=== PATIENT | male | born 1995 | race Hispanic/Latino ===

== ENCOUNTER 2019-03-23 03:30 | Emergency (ER) | payer SELFPAY ==
--- NOTE | 2019-03-23 04:03 | EDPHYS ---
Physician Documentation [facility] Name: Diego Howe Age: 24 yrs Sex: Male : 1995 Arrival Date: 03/23/2019 Time: 03:33 Bed 7 Private MD: ED Physician Vin Vicente HPI: 03/23 03:59 This 24 yrs old Male presents to ER via Ambulatory with complaints of Ear Pain.tw4 03:59 The patient presents with tenderness. The complaints affect the left ear. Onset: The tw4 symptoms/episode began/occurred 1 month(s) ago. Onset: The symptoms/episode began/occurred and became worse 2 day(s) ago. Modifying factors: The symptoms are alleviated by nothing, the symptoms are aggravated by nothing. Associated signs and symptoms: The patient has no apparent associated signs or symptoms. Severity of symptoms: At their worst the symptoms were mild. The patient has not experienced similar symptoms in the past. Historical: - Allergies: 03:47 No Known Allergies; rr5 - PMHx: 03:47 C-diff; Irritable bowel syndrome; rr5 - PSHx: 03:47 None; rr5 - Immunization history:: Adult Immunizations up to date. - Social history:: Smoking status: Patient uses tobacco products, smokes one pack cigarettes per day. Patient uses alcohol, occasionally. Patient/guardian denies using street drugs. - Ebola Screening: : Patient negative for fever greater than or equal to 101.5 degrees Fahrenheit, and additional compatible Ebola Virus Disease symptoms Patient denies exposure to infectious person Patient denies travel to an Ebola-affected area in the 21 days before illness onset. ROS: 03:59 Constitutional: Negative for fever, chills, and weight loss, Eyes: Negative for injury, tw4 pain, redness, and discharge. 03:59 ENT: Positive for ear pain, hearing loss. Exam: 03:59 Constitutional: This is a well developed, well nourished patient who is awake, alert, tw4 and in no acute distress. Head/Face: Normocephalic, atraumatic. 03:59 ENT: TM's: rupture, on the left. Vital Signs: 03:45 BP 135 / 95; Pulse 95; Resp 17; Temp 97.7; Pulse Ox 100% ; Weight 127.01 kg; Height 5 rr5 ft. 8 in. (172.72 cm); Pain 6/10; 03:45 Body Mass Index 42.57 (127.01 kg, 172.72 cm) rr5 MDM: 03:43 Patient medically screened. tw4 03:59 Differential diagnosis: otitis media, otitis externa, ruptured TM, cerumen impaction, tw4 barotrauma . Data reviewed: vital signs, nurses notes. Counseling: I had a detailed discussion with the patient and/or guardian regarding: the historical points, exam findings, and any diagnostic results supporting the discharge/admit diagnosis. Special discussion: I discussed with the patient/guardian in detail that at this point there is no indication for admission to the hospital. It is understood, however, that if the symptoms persist or worsen the patient needs to return immediately for re-evaluation. Administered Medications: No medications were administered Disposition: 03/23/19 04:02 Discharged to Home. Impression: Central perforation of tympanic membrane, left ear. - Condition is Stable. - Discharge Instructions: Eardrum Rupture, Adult, Eardrum Perforation, [id number]. - Prescriptions for Ciprodex 0.3- 0.1 % Otic Drops, Suspension - instill 4 drop by OTIC route every 12 hours for 7 days , for ears ONLY; 1 Container. - Medication Reconciliation Form, Thank You Letter, Antibiotic Education, Prescription Opioid Use, Work release form form. - Follow up: Private Physician; When: Upon discharge from the Emergency Department; Reason: Wound Recheck, If symptoms return, Continuance of care. Follow up: Adriana Flores MD; When: Upon discharge from the Emergency Department; Reason: If symptoms return, Recheck today's complaints, Continuance of care. - Problem is new. - Symptoms have improved. Signatures: Vin Vicente MD MD tw4 Serjio Schwab RN RN rr5 Corrections: (The following items were deleted from the chart) 04:10 04:02 03/23/2019 04:02 Discharged to Home. Impression: Central perforation of tympanic rr5 membrane, left ear. Condition is Stable. Forms are Medication Reconciliation Form, Thank You Letter, Antibiotic Education, Prescription Opioid Use. Follow up: Private Physician; When: Upon discharge from the Emergency Department; Reason: Wound Recheck, If symptoms return, Continuance of care. Follow up: Adriana Flores; When: Upon discharge from the Emergency Department; Reason: If symptoms return, Recheck today's complaints, Continuance of care. Problem is new. Symptoms have improved. tw4
--- NOTE | 2019-03-23 04:03 | ER ---
Nurse's Notes [facility] Name: Diego Howe Age: 24 yrs Sex: Male : 1995 Arrival Date: 03/23/2019 Time: 03:33 Bed 7 Private MD: Diagnosis: Central perforation of tympanic membrane, left ear Presentation: 03/23 03:40 Presenting complaint: Patient states: started to have left ear pain 1 1/2 month ago. I rr5 thought its just earwax I cleaned it and put some drops. Last 2-3 weeks started to have some drain, this week up to yesterday the pain it gets worse and I feel it clogged up. Transition of care: patient was not received from another setting of care. Onset of symptoms was February 2019. Risk Assessment: Do you want to hurt yourself or someone else? Patient reports no desire to harm self or others. Initial Sepsis Screen: Does the patient meet any 2 criteria? No. Patient's initial sepsis screen is negative. Does the patient have a suspected source of infection? No. Patient's initial sepsis screen is negative. Care prior to arrival: Medication(s) given: ear drops. 03:40 Method Of Arrival: Ambulatory rr5 03:40 Acuity: MALENA 4 rr5 Historical: - Allergies: 03:47 No Known Allergies; rr5 - PMHx: 03:47 C-diff; Irritable bowel syndrome; rr5 - PSHx: 03:47 None; rr5 - Immunization history:: Adult Immunizations up to date. - Social history:: Smoking status: Patient uses tobacco products, smokes one pack cigarettes per day. Patient uses alcohol, occasionally. Patient/guardian denies using street drugs. - Ebola Screening: : Patient negative for fever greater than or equal to 101.5 degrees Fahrenheit, and additional compatible Ebola Virus Disease symptoms Patient denies exposure to infectious person Patient denies travel to an Ebola-affected area in the 21 days before illness onset. Screenin:47 Abuse screen: Denies threats or abuse. Denies injuries from another. Nutritional rr5 screening: No deficits noted. Tuberculosis screening: No symptoms or risk factors identified. Fall Risk None identified. Total Ferreira Fall Scale indicates No Risk (0-24 pts). Assessment: 03:47 General: Appears in no apparent distress. comfortable, Behavior is calm, cooperative, rr5 appropriate for age. Pain: Complains of pain in left ear Pain does not radiate. Pain currently is 6 out of 10 on a pain scale. Quality of pain is described as aching, Pain began gradually, Is intermittent. Neuro: Level of Consciousness is awake, alert, obeys commands, Oriented to person, place, time, situation, Appropriate for age. Cardiovascular: Capillary refill < 3 seconds Patient's skin is warm and dry. Respiratory: Airway is patent Respiratory effort is even, unlabored, Respiratory pattern is regular, symmetrical. GI: No signs and/or symptoms were reported involving the gastrointestinal system. : No signs and/or symptoms were reported regarding the genitourinary system. EENT: Ear canal w/ drainage noted from left ear ruptured ear drum. Reports pain in left ear Pain is 6 out of 10 on a pain scale. Derm: Skin is intact, Skin temperature is warm. Musculoskeletal: Circulation, motion, and sensation intact. Capillary refill < 3 seconds. 04:08 Reassessment: Patient appears in no apparent distress at this time. Patient is alert, rr5 oriented x 3, equal unlabored respirations, skin warm/dry/pink. discharge instruction given and explained without complaints made verbalized understanding. Vital Signs: 03:45 BP 135 / 95; Pulse 95; Resp 17; Temp 97.7; Pulse Ox 100% ; Weight 127.01 kg; Height 5 rr5 ft. 8 in. (172.72 cm); Pain 6/10; 03:45 Body Mass Index 42.57 (127.01 kg, 172.72 cm) rr5 ED Course: 03:33 Patient arrived in ED. ds1 03:40 Serjio Schwab, KEEGAN is Primary Nurse. rr5 03:43 Vin Vicente MD is Attending Physician. tw4 03:45 Triage completed. rr5 03:47 Arm band placed on left wrist. rr5 03:47 Patient has correct armband on for positive identification. rr5 03:47 No provider procedures requiring assistance completed. rr5 04:01 Adriana Flores MD is Referral Physician. tw4 04:09 Patient did not have IV access during this emergency room visit. rr5 Administered Medications: No medications were administered Outcome: 04:02 Discharge ordered by . tw4 04:09 Discharged to home ambulatory. rr5 04:09 Condition: stable 04:09 Discharge instructions given to patient, Instructed on discharge instructions, follow up and referral plans. medication usage, Demonstrated understanding of instructions, Prescriptions given X 1. 04:10 Patient left the ED. rr5 Signatures: Yanna Cortés ds1 Vin Vicente MD MD tw4 Serjio Schwab RN RN rr5
[2019-03-23 04:17] VITALS: BP 135/95; TEMP 97.7; O2SAT 100
== END 2019-03-23 04:10 | disposition home or self-care (01) ==
LOC: ER 03:30
DX: H72.02 Central perforation of tympanic membrane, left ear (principal); F17.210 Nicotine dependence, cigarettes, uncomplicated
CPT/HCPCS: 99282

== ENCOUNTER 2020-02-13 07:22 | Inpatient (IN) | payer SELFPAY ==
[2020-02-13] MEDS ORDERED: METHYLPREDNISOLONE 125 MG INJ ONE (08:14)
[2020-02-13 08:23] LABS: Absolute Lymphocytes (CBC) 1.4 K/uL (0.7-4.9); Basophils % 0.6 % (0-1.3); Hematocrit 52.9 % (39.6-49.0); Lymphocytes % 12.6 % (15.3-44.8); MPV 10.4 fL (7.6-11.3); RBC Red Blood Cell Count 5.92 M/uL (4.33-5.43)
[2020-02-13 08:24] LABS: Protime INR 0.97
[2020-02-13 08:37] LABS: ALT/SGPT 147 U/L (12-78); AST/SGOT 44 U/L (15-37); Albumin 4.1 g/dL (3.4-5.0); Alkaline Phosphatase 193 U/L (45-117); BUN Blood Urea Nitrogen 10 mg/dL (7-18); Bilirubin Direct 0.2 mg/dL (0-0.2); Bilirubin Total 0.6 mg/dL (0.2-1.0); CKMB Creatine Kinase MB 1.2 ng/mL (0.3-3.6); Creatine Phosphokinase 160 U/L (39-308); Glucose Level 433 mg/dL (74-106); Lipase 200 U/L (73-393); Magnesium 2.3 mg/dL (1.8-2.4); NT PRO-BNP 14 pg/mL (<125); Potassium 3.9 mmol/L (3.5-5.1); Protein, Total 8.7 g/dL (6.4-8.2); Sodium Level 128 mmol/L (136-145); Troponin (Emerg Dept Use Only) < 0.02 ng/mL (0.0-0.045)
[2020-02-13] MEDS ORDERED: NA CHLORIDE 0.9% 1,000 ML ONE ×2 (08:38→10:05)
[2020-02-13] MEDS ORDERED: ALBUTEROL 2.5 MG/3 ML NEB SOL ONE (08:38)
[2020-02-13 08:41] LABS: Bicarbonate 8 mmol/L (21-32)
--- NOTE | 2020-02-13 08:50 | ER ---
Nurse's Notes [facility] Name: Diego Howe Age: 24 yrs Sex: Male : 1995 Arrival Date: 02/13/2020 Time: 07:24 Bed 9 Private MD: Diagnosis: Type 1 diabetes mellitus with ketoacidosis Presentation: 02/12 07:48 Chief complaint: Patient states: PT c/o sob x3 days with productive cough, also c/o cp jr10 with deep breathing; pt noted to be tachypnic upon arrival. Coronavirus screen: Client denies travel out of the [place] in the last 14 days. cough unrelated to allergies, difficulty breathing, shortness of breath, Client presents with at least one sign or symptom that may indicate coronavirus-19. Standard/surgical mask placed on the client. Provider contacted for isolation considerations. The client denies any previous COVID testing. Ebola Screen: No symptoms or risks identified at this time. Initial Sepsis Screen: Does the patient meet any 2 criteria? RR > 20 per min. HR > 90 bpm. Yes Does the patient have a suspected source of infection? No. Patient's initial sepsis screen is negative. Risk Assessment: Do you want to hurt yourself or someone else? Patient reports no desire to harm self or others. Onset of symptoms was February 10, 2020. 07:48 Method Of Arrival: Wheelchair jr10 07:48 Acuity: MALENA 3 jr10 09:30 Acuity: MALENA 2 hb Historical: - Allergies: 07:57 No Known Allergies; jr10 - Home Meds: 07:57 None [Active]; jr10 - PMHx: 07:57 C-diff; Irritable bowel syndrome; Asthma; jr10 - Immunization history:: Adult Immunizations up to date. - Social history:: Smoking status: Patient reports the use of cigarette tobacco products, smokes one-half pack cigarettes per day, Patient/guardian denies using alcohol, street drugs, The patient lives with family. - Family history:: not pertinent. Screenin:01 Abuse screen: Denies threats or abuse. Denies injuries from another. Nutritional jr10 screening: No deficits noted. Tuberculosis screening: No symptoms or risk factors identified. Fall Risk No fall in past 12 months (0 pts). No secondary diagnosis (0 pts). IV access (20 points). Ambulatory Aid- None/Bed Rest/Nurse Assist (0 pts). Gait- Normal/Bed Rest/Wheelchair (0 pts) Mental Status- Oriented to own ability (0 pts). Assessment: 07:57 Reassessment: see triage note. General: Appears uncomfortable, Behavior is anxious. jr10 Pain: Denies pain. Neuro: No deficits noted. Cardiovascular: No deficits noted. Reports chest pain, with inspiration and cough Rhythm is regular. Respiratory: Reports shortness of breath at rest on exertion cough that is productive, pain with respiration Airway is patent Respiratory effort is even, unlabored, Respiratory pattern is symmetrical, tachypnea Breath sounds are clear bilaterally. the patient has moderate shortness of breath. GI: No deficits noted. : Reports urinary frequency. EENT: No deficits noted. Derm: No deficits noted. Musculoskeletal: No deficits noted. 15:38 Reassessment: Pt family contact information: Justyna (sister): [phone]. jr10 02/13 06:24 Reassessment: Phosporus of 0.3 naldo from laboratory called. ED provider aware. rr5 Vital Signs: 02/12 07:48 BP 159 / 108; Pulse 127; Resp 30; Temp 98.0; Pulse Ox 100% on R/A; Weight 99.79 kg (R); jr10 Height 6 ft. 3 in. (190.50 cm) (R); Pain 0/10; 10:30 BP 171 / 107; Pulse 126; Resp 36; Pulse Ox 100% on R/A; jr10 11:00 BP 158 / 94; Pulse 139; Resp 38; Pulse Ox 99% on R/A; jr10 12:00 BP 193 / 100; Pulse 133; Resp 36; Pulse Ox 98% on R/A; jr10 13:00 BP 150 / 98; Pulse 128; Resp 33; Pulse Ox 98% on R/A; jr10 14:00 BP 162 / 91; Pulse 123; Resp 30; Pulse Ox 98% on R/A; jr10 07:48 Body Mass Index 27.50 (99.79 kg, 190.50 cm) jr10 ED Course: 07:24 Patient arrived in ED. ds1 07:41 Carolyn Jackson MD is Attending Physician. ma2 07:47 Greene, Gabi, RN is Primary Nurse. jr10 07:48 No provider procedures requiring assistance completed. Inserted saline lock: 20 gauge jr10 in right antecubital area, using aseptic technique. IV is patent, is intact, with good blood return, Flushed. 07:56 Triage completed. jr10 07:57 Arm band placed on right wrist. jr10 08:01 Patient has correct armband on for positive identification. Bed in low position. Side jr10 rails up X 1. Side rails up X2. ekg monitor tech on. Pulse ox on. NIBP on. 08:15 EKG done, by ED staff, reviewed by Carolyn Jackson MD. dh3 08:29 XRAY CXR (1 view) In Process Unspecified. EDMS 08:50 Chucky Cabrera DO is Hospitalizing Provider. ma2 13:00 Patient admitted, IV remains in place. ED hold. jr10 19:39 Candido Sultana RN is Primary Nurse. rv 02/13 07:35 Wes Mckinney MD is Attending Physician. lexa Administered Medications: 02/12 08:35 Drug: SOLU-Medrol 125 mg Route: IVP; Site: right antecubital; jr10 09:23 Follow up: Response: No adverse reaction jr10 08:35 Drug: NS 0.9% 500 ml Route: IV; Rate: 1 bolus; Site: right antecubital; jr10 13:21 Follow up: Response: No adverse reaction; IV Status: Completed infusion jr10 08:41 Drug: Albuterol 2.5 mg Route: Inhalation; jr10 09:05 Drug: Albuterol 2.5 mg Route: Inhalation; jr10 13:22 Follow up: Response: No adverse reaction jr10 09:50 Drug: Insulin Drip - (Insulin Regular Human 100 units, NS 0.9% 100 ml) {Co-Signature: jr10 hb (Halley Brannon RN).} Route: IV; Rate: calculated rate; Site: right antecubital; 13:30 Follow up: Response: No adverse reaction; IV Status: Infusion continued upon admission jr10 09:53 Drug: NS 0.9% 200 ml Route: IV; Rate: 1000 ml; Site: left antecubital; jr10 15:00 Follow up: Response: No adverse reaction; IV Status: Completed infusion jr10 09:54 Not Given (d/c via verbal order from ): AZITHromycin 500 mg IVPB once over 1 hrs; jr10 (mix in 250 mL NS) Outcome: 08:50 Decision to Hospitalize by Provider. ma2 13:00 Admitted to ER Hold. Please see [facility] for further documentation. jr10 13:00 Condition: stable 13:00 Instructed on the need for admit, Demonstrated understanding of instructions. 08 02:59 Patient left the ED. sg Signatures: Dispatcher [employer] EDMS Bob Lyon, RN RN sg Wes Mckinney MD MD cha Sanford, Demi ds1 Halley Brannon, KEEGAN RN Malina Flores 3 Carolyn Jackson MD MD ma2 Candido Sultana, RN RN Serjio Schwab RN RN rr5 Gabi Greene RN RN jr10 Halley Brannon RN Corrections: (The following items were deleted from the chart) 02/12 09: 07:57 GI: No deficits noted. jr10 09: 07:57 : No deficits noted. jr10 jr10
--- NOTE | 2020-02-13 08:51 | EDPHYS ---
Physician Documentation [facility] Name: Diego Howe Age: 24 yrs Sex: Male : 1995 Arrival Date: 02/13/2020 Time: 07:24 Bed 9 Private MD: ED Physician Wes Mckinney HPI: 02/12 08:48 This 24 yrs old Male presents to ER via Wheelchair with complaints of ma2 Breathing Difficulty. 08:48 The patient has shortness of breath at rest. Onset: The symptoms/episode began/occurred ma2 gradually, 6 day(s) ago. Duration: The symptoms are continuous. Associated signs and symptoms: Pertinent negatives: diaphoresis, dizziness, fever, loss of consciousness. Severity of symptoms: At their worst the symptoms were moderate in the emergency department the symptoms are unchanged. The patient has not experienced similar symptoms in the past. Historical: - Allergies: 07:57 No Known Allergies; jr10 - Home Meds: 07:57 None [Active]; jr10 - PMHx: 07:57 C-diff; Irritable bowel syndrome; Asthma; jr10 - Immunization history:: Adult Immunizations up to date. - Social history:: Smoking status: Patient reports the use of cigarette tobacco products, smokes one-half pack cigarettes per day, Patient/guardian denies using alcohol, street drugs, The patient lives with family. - Family history:: not pertinent. ROS: 08:48 Constitutional: Negative for fever, chills, and weight loss. ma2 08:48 All other systems are negative. Exam: 08:48 Constitutional: This is a well developed, well nourished patient who is awake, alert, ma2 and in no acute distress. Head/Face: Normocephalic, atraumatic. ENT: Nares patent. No nasal discharge, no septal abnormalities noted. Tympanic membranes are normal and external auditory canals are clear. Oropharynx with no redness, swelling, or masses, exudates, or evidence of obstruction, uvula midline. Mucous membranes moist. Neck: Trachea midline, no thyromegaly or masses palpated, and no cervical lymphadenopathy. Supple, full range of motion without nuchal rigidity, or vertebral point tenderness. No Meningismus. Chest/axilla: Normal chest wall appearance and motion. Nontender with no deformity. No lesions are appreciated. Cardiovascular: Regular rate and rhythm with a normal S1 and S2. No gallops, murmurs, or rubs. Normal PMI, no JVD. No pulse deficits. Respiratory: breathing fast, otherwise Lungs have equal breath sounds bilaterally, clear to auscultation and percussion. No rales, rhonchi or wheezes noted. Abdomen/GI: Soft, non-tender, with normal bowel sounds. No distension or tympany. No guarding or rebound. No evidence of tenderness throughout. Vital Signs: 07:48 BP 159 / 108; Pulse 127; Resp 30; Temp 98.0; Pulse Ox 100% on R/A; Weight 99.79 kg (R); jr10 Height 6 ft. 3 in. (190.50 cm) (R); Pain 0/10; 10:30 BP 171 / 107; Pulse 126; Resp 36; Pulse Ox 100% on R/A; jr10 11:00 BP 158 / 94; Pulse 139; Resp 38; Pulse Ox 99% on R/A; jr10 12:00 BP 193 / 100; Pulse 133; Resp 36; Pulse Ox 98% on R/A; jr10 13:00 BP 150 / 98; Pulse 128; Resp 33; Pulse Ox 98% on R/A; jr10 14:00 BP 162 / 91; Pulse 123; Resp 30; Pulse Ox 98% on R/A; jr10 07:48 Body Mass Index 27.50 (99.79 kg, 190.50 cm) [facility] MDM: 07:41 Patient medically screened. ma2 08:48 Differential diagnosis: Anemia pneumonia, Pneumothorax reactive airway disease. Data wy2 reviewed: vital signs, nurses notes. Counseling: I had a detailed discussion with the patient and/or guardian regarding: the historical points, exam findings, and any diagnostic results supporting the discharge/admit diagnosis, the presence of at least one elevated blood pressure reading (>120/80) during this emergency department visit, the need for further work-up and treatment in the hospital. 02/12 07:55 Order name: BMP; Complete Time: 08:44 ma2 02/12 07:55 Order name: CBC with Diff; Complete Time: 08:44 ma2 02/12 07:55 Order name: Ckmb; Complete Time: 08:44 ma2 02/12 07:55 Order name: CPK; Complete Time: 08:44 ma2 02 07:55 Order name: Hepatic Function; Complete Time: 08:44 ma2 02/12 07:55 Order name: Lipase; Complete Time: 08:44 ma2 02 07:55 Order name: Magnesium; Complete Time: 08:44 ma2 02/12 07:55 Order name: NT PRO-BNP; Complete Time: 08:44 ma2 02/12 07:55 Order name: PT-INR; Complete Time: 08:44 ma2 02/12 07:55 Order name: Ptt, Activated; Complete Time: 08:44 ma2 02/12 07:55 Order name: Troponin (emerg Dept Use Only); Complete Time: 08:44 ma2 02/12 10:24 Order name: Urine Dipstick--Ancillary (enter results) eb 02/12 10:33 Order name: Urine Dipstick-Ancillary; Complete Time: 12:51 EDMS 02/12 10:57 Order name: Glucose, Ancillary Testing; Complete Time: 12:51 EDMS 02/12 11:10 Order name: ABG Arterial Blood Gas; Complete Time: 12:51 EDMS 02/12 11:56 Order name: Urine Drug Screen; Complete Time: 12:51 EDMS 02/12 12:32 Order name: Hemoglobin A1c; Complete Time: 12:51 EDMS 02 12:34 Order name: Glucose, Ancillary Testing; Complete Time: 12:51 EDMS 02/12 12:54 Order name: Basic Metabolic Panel; Complete Time: 12:51 EDMS 02/12 12:54 Order name: T4 Free; Complete Time: 12:52 EDMS 02/12 12:54 Order name: Thyroid Stimulating Hormone; Complete Time: 12:51 EDMS 02 13:46 Order name: Glucose, Ancillary Testing; Complete Time: 12:51 EDMS 02/12 14:51 Order name: Glucose, Ancillary Testing; Complete Time: 12:51 EDMS 02/12 15:22 Order name: Basic Metabolic Panel; Complete Time: 12:51 EDMS 02/12 15:43 Order name: ABG Arterial Blood Gas; Complete Time: 12:51 EDMS 02/12 15:51 Order name: Glucose, Ancillary Testing; Complete Time: 12:51 EDMS 02/12 16:51 Order name: Glucose, Ancillary Testing; Complete Time: 12:51 EDMS 02/12 17:36 Order name: Glucose, Ancillary Testing; Complete Time: 12:51 EDMS 02/12 18:34 Order name: Glucose, Ancillary Testing; Complete Time: 12:51 EDMS 02/12 18:35 Order name: CORONAVIRUS; Complete Time: 12:52 EDMS 02/12 19:39 Order name: Basic Metabolic Panel; Complete Time: 12:51 EDMS 02/12 19:40 Order name: Glucose, Ancillary Testing; Complete Time: 12:51 EDMS 02/12 20:56 Order name: Glucose, Ancillary Testing; Complete Time: 12:52 EDMS 02/12 21:41 Order name: Glucose, Ancillary Testing; Complete Time: 12:52 EDMS 02/12 23:44 Order name: Glucose, Ancillary Testing; Complete Time: 12:52 EDMS 02/12 23:46 Order name: Glucose, Ancillary Testing; Complete Time: 12:52 EDMS 02/13 00:44 Order name: Glucose, Ancillary Testing; Complete Time: 12:52 EDMS 02/13 01:55 Order name: Glucose, Ancillary Testing; Complete Time: 12:52 EDMS 02/13 02:10 Order name: Basic Metabolic Panel; Complete Time: 12:52 EDMS 02/13 02:54 Order name: Glucose, Ancillary Testing; Complete Time: 12:52 EDMS 02/13 03:54 Order name: Acetone Level; Complete Time: 12:52 EDMS 02/13 03:54 Order name: Glucose, Ancillary Testing; Complete Time: 12:52 EDMS 02/13 04:03 Order name: Lactate; Complete Time: 12:52 EDMS 02/13 04:40 Order name: Basic Metabolic Panel; Complete Time: 12:52 EDMS 02/13 04:40 Order name: Phosphorus; Complete Time: 12:52 EDMS 02/13 04:40 Order name: NT PRO-BNP; Complete Time: 12:52 EDMS 02/13 04:40 Order name: Magnesium; Complete Time: 12:52 EDMS 02/13 04:49 Order name: Glucose, Ancillary Testing; Complete Time: 12:52 EDMS 02/13 05:44 Order name: Acetone Level; Complete Time: 12:52 EDMS 02/13 05:49 Order name: CBC with Automated Diff; Complete Time: 12:52 EDMS 02/13 06:24 Order name: Phosphorus; Complete Time: 12:52 EDMS 02/13 06:24 Order name: Lipid Profile; Complete Time: 12:52 EDMS 02/13 06:24 Order name: Magnesium; Complete Time: 12:52 EDMS 02/13 06:35 Order name: LDL, Direct; Complete Time: 12:52 EDMS 02/13 06:38 Order name: Glucose, Ancillary Testing; Complete Time: 12:52 EDMS 02/13 07:44 Order name: Glucose, Ancillary Testing; Complete Time: 12:52 EDMS 02/13 08:50 Order name: Glucose, Ancillary Testing; Complete Time: 12:52 EDMS 02/13 09:50 Order name: Glucose, Ancillary Testing; Complete Time: 12:52 EDMS 02/13 09:52 Order name: Urine Culture EDMS 02/13 10:38 Order name: Basic Metabolic Panel; Complete Time: 12:52 EDMS 02/13 10:46 Order name: Glucose, Ancillary Testing; Complete Time: 12:52 EDMS 02/13 11:32 Order name: Blood Culture EDMS 02/12 07:55 Order name: XRAY CXR (1 view); Complete Time: 12:52 ma2 02/12 07:55 Order name: EKG; Complete Time: 07:56 ma2 02/12 07:55 Order name: Cardiac monitoring; Complete Time: 08:01 ma2 02/12 07:55 Order name: EKG - Nurse/Tech; Complete Time: 08:25 ma2 02/12 07:55 Order name: IV Saline Lock; Complete Time: 08:02 ma2 02/12 07:55 Order name: Labs collected and sent; Complete Time: 08:02 ma2 02/12 07:55 Order name: O2 Per Protocol; Complete Time: 08:02 ma2 02/12 07:55 Order name: O2 Sat Monitoring; Complete Time: 08:02 ma2 02/12 11:56 Order name: US; Complete Time: 12:52 EDMS 02/13 11:36 Order name: Glucose, Ancillary Testing; Complete Time: 12:52 EDMS 02/13 12:45 Order name: Glucose, Ancillary Testing; Complete Time: 12:52 EDMS 02/13 13:48 Order name: Glucose, Ancillary Testing EDMS 02/13 14:27 Order name: Basic Metabolic Panel EDMS 02/13 14:54 Order name: Glucose, Ancillary Testing EDMS 02/13 15:43 Order name: Glucose, Ancillary Testing EDMS 02/13 16:25 Order name: Glucose, Ancillary Testing EDMS 02/13 17:38 Order name: Glucose, Ancillary Testing EDMS 02/13 18:31 Order name: Glucose, Ancillary Testing EDMS 02/13 18:43 Order name: Basic Metabolic Panel EDMS 02/13 20:34 Order name: Glucose, Ancillary Testing EDMS 02/13 21:37 Order name: Glucose, Ancillary Testing EDMS 02/13 22:35 Order name: Glucose, Ancillary Testing EDMS 02/13 22:42 Order name: Basic Metabolic Panel EDMS 02/14 01:20 Order name: Glucose, Ancillary Testing EDMS Administered Medications: 08:35 Drug: SOLU-Medrol 125 mg Route: IVP; Site: right antecubital; jr10 09:23 Follow up: Response: No adverse reaction jr10 08:35 Drug: NS 0.9% 500 ml Route: IV; Rate: 1 bolus; Site: right antecubital; jr10 13:21 Follow up: Response: No adverse reaction; IV Status: Completed infusion jr10 08:41 Drug: Albuterol 2.5 mg Route: Inhalation; jr10 09:05 Drug: Albuterol 2.5 mg Route: Inhalation; jr10 13:22 Follow up: Response: No adverse reaction jr10 09:50 Drug: Insulin Drip - (Insulin Regular Human 100 units, NS 0.9% 100 ml) {Co-Signature: jr10 (Halley Brannon RN).} Route: IV; Rate: calculated rate; Site: right antecubital; 13:30 Follow up: Response: No adverse reaction; IV Status: Infusion continued upon admission jr10 09:53 Drug: NS 0.9% 200 ml Route: IV; Rate: 1000 ml; Site: left antecubital; jr10 15:00 Follow up: Response: No adverse reaction; IV Status: Completed infusion jr10 09:54 Not Given (d/c via verbal order from MD ): AZITHromycin 500 mg IVPB once over 1 hrs; jr10 (mix in 250 mL NS) Disposition: 02/13/20 08:50 Hospitalization ordered by Chucky Cabrera for Inpatient Admission. Preliminary diagnosis is Type 1 diabetes mellitus with ketoacidosis. - Bed requested for Telemetry/MedSurg (Inpatient). - Status is Inpatient Admission. sg - Condition is Guarded. - Problem is new. - Symptoms are unchanged. Signatures: Dispatcher [employer] EDMargoth Alvarez RN KEEGAN Bev Baeza RN KEEGAN dw Bob Lyon RN RN sg Carin Oates, PRESCHOOL PROGRAM DIRECTOR-C PRESCHOOL PROGRAM DIRECTOR-Csnw Ceci Acharya RN RN Carolyn Jackson MD MD wy2 Gabi Greene RN RN jr10 Halley Brannon RN Corrections: (The following items were deleted from the chart) 11:22 08:50 Hospitalization Ordered by Madeleine Marketstalin ULLOA for Inpatient Admission. Preliminary ss diagnosis is Type 1 diabetes mellitus with ketoacidosis. Bed requested for Intensive Care Unit. Status is Inpatient Admission. Condition is Guarded. Problem is new. Symptoms are unchanged. ma2 02/13 19:47 08 11:22 02/13/2020 08:50 Hospitalization Ordered by Chucky Gnarus Systemsstalin ULLOA for Inpatient dw Admission. Preliminary diagnosis is Type 1 diabetes mellitus with ketoacidosis. Bed requested for [facility] ER HOLD. Status is Inpatient Admission. Condition is Guarded. Problem is new. Symptoms are unchanged. ss 02/14 01:35 08 19:47 02/13/2020 08:50 Hospitalization Ordered by ChuckyOkoaafrica Toursstalin DO for Inpatient mw Admission. Preliminary diagnosis is Type 1 diabetes mellitus with ketoacidosis. Bed requested for Intensive Care Unit. Status is Inpatient Admission. Condition is Guarded. Problem is new. Symptoms are unchanged. dw 02/14 02:59 01:35 02/13/2020 08:50 [facility]. Preliminary diagnosis is Type 1 diabetes mellitus with ketoacidosis. Bed requested for Telemetry/MedSurg (Inpatient). Status is Inpatient Admission. Condition is Guarded. Problem is new. Symptoms are unchanged. mw
[2020-02-13] MEDS ORDERED: D50W 25 GM/50 ML SYRINGE/VIAL IV PRN (08:57)
[2020-02-13] MEDS ORDERED: GLUCAGON 1 MG/VIAL IM PRN (08:57)
[2020-02-13] MEDS ORDERED: AZITHROMYCIN IV 500 MG in NA CHLORIDE 0.9% 250 ML IVPB ONE (09:00)
[2020-02-13] MEDS ORDERED: INSULIN -REGULAR HUMAN 100 UNIT in NA CHLORIDE 0.9% 100 ML IV SCH (09:00)
--- NOTE | 2020-02-13 09:05 | RAD REPORT ---
EXAM DESCRIPTION: Shoaib Single View02/13/2020 8:29 am CLINICAL HISTORY: Chest pain COMPARISON: 2012 FINDINGS: The lungs appear clear of acute infiltrate. The heart is normal size IMPRESSION: No acute abnormalities displayed
[2020-02-13] MEDS ORDERED: ONDANSETRON 4 MG/2 ML VIAL IV PRN (10:11)
--- NOTE | 2020-02-13 10:11 | P.HP ---
Certification for Inpatient With expected LOS: >2 Midnights Patient will require the following post-hospital care: None Practitioner: I am a practitioner with admitting privileges, knowledge of patient current condition, hospital course, and medical plan of care. Services: Services provided to patient in accordance with Admission requirements found in Title 42 Section 412.3 of the Code of Federal Regulations <GeevalerieJaxson rizo - Last Filed: 02/13/20 10:05> Patient History Date of Service: 02/13/20 Reason for admission: DKA History of Present Illness: 24-year-old male with no significant past medical history other than asthma but currently takes no medication for it presents to the emergency room with complaints of worsening shortness of breath over the past 6 days. Patient also states that he has been drinking a lot of water lately and urinating multiple times through the day. In the emergency room patient was found to have a blood glucose of 433, a CO2 of 8 L with a calculated anion gap of 18 consistent with anion gap acidosis and DKA. Also creatinine of 1.2, GFR 71 and a white cell count of 11.4. Hemoglobin A1c, urine drug screen, hepatitis panel, HIV panel, UA, blood culture and urine culture as well as tsh and free T4 are pending. On physical exam patient is in mild respiratory distress. He is talking and able to answer questions. States that he is never been diagnosed with diabetes and has not had symptoms of shortness of breath until recently. Viewing past visits patient's A1c was within normal limits dating back to 2012. Patient is in DKA. He is going to require ICU admission. In the ED patient is on an insulin drip and aggressive IV fluids. Patient will be admitted to the ICU and further evaluated. Home medications list reviewed: Yes - Past Medical/Surgical History Has patient received pneumonia vaccine in the past: No Diabetic: Yes -: Asthma -: New onset DM -: none Psychosocial/ Personal History: Single. Patient states he lives at home. - Social History Smoking Status: Current every day smoker Smoking therapy provided: Yes Patient receptive to therapy: Yes Alcohol use: No CD- Drugs: No Caffeine use: No Place of Residence: Home <Jaxson Álvarez - Last Filed: 02/13/20 10:05> Date of Service: 02/13/20 - Family History Family History: Reviewed- Non-Contributory <Chucky Cabrera - Last Filed: 02/13/20 18:19> Allergies No Known Allergies Allergy (Unverified 06/23/12 13:46) Review of Systems General: Weakness, As per HPI Eyes: Unremarkable ENT: Unremarkable Respiratory: Shortness of Breath, SOB with Excertion Cardiovascular: Unremarkable Gastrointestinal: Unremarkable Genitourinary: Unremarkable Musculoskeletal: Unremarkable Integumentary: Unremarkable Neurological: Unremarkable Lymphatics: Unremarkable <Jaxson Álvarez - Last Filed: 02/13/20 10:05> Physical Examination - Vital Signs Temperature: 98.0 F Blood Pressure: 159/108 Pulse: 127 Respirations: 30 Pulse Ox (%): 100 (RA) - Physical Exam General: Alert, Oriented x3, Cooperative, Mild distress HEENT: Atraumatic, Normocephalic, PERRLA Neck: Supple, No Thyromegaly, Other (Trachea midline) Respiratory: Clear to auscultation bilaterally Cardiovascular: No edema, Normal pulses, Regular rate/rhythm, Normal S1 S2 Capillary refill: <2 Seconds Gastrointestinal: Normal bowel sounds, Soft and benign, Non-distended Musculoskeletal: No clubbing, No swelling, No contractures Integumentary: No rashes, No breakdown, No significant lesion, No tenderness/swelling Neurological: Normal gait, Normal speech, Normal strength at 5/5 x4 extr, Normal tone - Studies Laboratory Data (last 24 hrs) 02/13/20 07:59: PT 11.4, INR 0.97, APTT 34.5 02/13/20 07:59: WBC 11.4 H, Hgb 17.7, Hct 52.9 H, Plt Count 309 02/13/20 07:59: Sodium 128 L, Potassium 3.9, BUN 10, Creatinine 1.27, Glucose 433 H*, Magnesium 2.3, Total Bilirubin 0.6, AST 44 H, ALT 147 H, Alkaline Phosphatase 193 H, Lipase 200 <Jaxson Álvarez - Last Filed: 02/13/20 10:05> - Studies Laboratory Data (last 24 hrs) 02/13/20 07:59: PT 11.4, INR 0.97, APTT 34.5 02/13/20 07:59: WBC 11.4 H, Hgb 17.7, Hct 52.9 H, Plt Count 309 02/13/20 07:59: Sodium 128 L, Potassium 3.9, BUN 10, Creatinine 1.27, Glucose 433 H*, Magnesium 2.3, Total Bilirubin 0.6, AST 44 H, ALT 147 H, Alkaline Phosphatase 193 H, Lipase 200 <Chucky Cabrera - Last Filed: 02/13/20 18:19> Assessment and Plan - Plan Impression: DKA secondary to new diagnosis of diabetes mellitus likely type 2 and hyperglycemia: Anion gap acidosis: History of asthma: History of irritable bowel syndrome: Plan: DKA secondary to new diagnosis of diabetes mellitus likely type 2 and hyperglycemia: Patient was noted to be in DKA on arrival to the ED after blood work results. His blood glucose was 433. A1c pending. Will also order UDS, he patitis, HIV, UA, blood culture, urine culture, tsh and T4 which are pending. His oxygen saturations are 100% on room air but he is mildly distressed. He was tachypneic and tachycardic on arrival to ED. Patient was started on an insulin drip and aggressive IV fluid resuscitation. Will continue insulin drip and aggressive fluid resuscitation. Will place patient on telemetry. Will monitor vitals q.1 hr and follow ICU protocol. Patient will require diabetic education and prescriptions on discharge. Anion gap acidosis: Calculated anion gap of 18. Likely secondary to above diagnosis of DKA secondary to new diagnosis of diabetes mellitus. Will continue as above. Monitor labs and blood glucose. History of asthma: Patient does not take medication for asthma. Currently not requiring O2 support. Room air saturations are 100%. Monitor. History of irritable bowel syndrome: Patient states he had and EGD and a C scope several years back which showed some gastric ulcers. Scopes were done approximately 6 years ago. Denies any recent abdominal issues. States he has normal bowel movements. Will start patient on Protonix empirically. Discharge Plan: Home Plan to discharge in: Greater than 2 days - Advance Directives Does patient have a Living Will: No Does patient have a Durable POA for Healthcare: No - Code Status/Comfort Care Code Status Assessed: Yes Time Spent Managing Pts Care (In Minutes): 70 <Jaxson Álvarez - Last Filed: 02/13/20 10:05> - Plan Patient seen and examined. Agree with assessment and plan of care of PA. Patient will be placed on Insulin drip, Aggressive IV fluids. May need Bicarb. but discussed with critical care-Dr. Barrios who is covering for hospitalist this afternoon. He will monitor for now. I will have Vehicle Mechanic follow the patient closely tonight. Continue with DKA protocol. I will turn the service over to the Hospitalist team tomorrow. I will go over the plan of care. <Chucky Cabrera - Last Filed: 02/13/20 18:19>
[2020-02-13 10:33] LABS: Urine Blood 2+ (NEG); Urine Glucose 2+ (NEG); Urine Protein 2+ (NEG); Urine Specific Gravity 1.025 (1.005-1.030)
[2020-02-13] MEDS ORDERED: NACHLORIDE 0.45% 1,000 ML with POTASSIUM CL 20 MEQ IV SCH ×2 (11:00)
[2020-02-13] MEDS ORDERED: NA CHLORIDE 0.9% 1,000 ML IV ONE (11:00)
[2020-02-13] MEDS: NICOTINE 21 MG/PAT TD SCH (11:00)
[2020-02-13] MEDS ORDERED: D5.45NS W/KCL 20MEQ 1,000 ML IV SCH (11:00)
[2020-02-13] MEDS: ENOXAPARIN 40 MG/0.4 ML SQ SCH (11:00)
[2020-02-13 11:09] LABS: Arterial Blood Carboxyhemoglob 1.5 % (0-1.5); Blood O2 Saturation 97.6 % (92-98.5)
[2020-02-13 11:55] LABS: Barbiturates NEGATIVE (NEGATIVE); Benzodiazepines NEGATIVE (NEGATIVE); Cocaine NEGATIVE (NEGATIVE); METHAMPHETAM NEGATIVE (NEGATIVE); Methadone NEGATIVE (NEGATIVE); Opiates NEGATIVE (NEGATIVE); Phencyclidine NEGATIVE (NEGATIVE); THC Cannibis POSITIVE (NEGATIVE)
--- NOTE | 2020-02-13 11:55 | RAD REPORT ---
EXAM DESCRIPTION: US - Liver Only - 02/13/2020 10:48 am CLINICAL HISTORY: Elevated liver function test enzymes COMPARISON: None FINDINGS: The evaluation was suboptimal due to labored breathing The liver has an increased echotexture. Suboptimal evaluation of portal vein. A lesion is not visuali zed. Liver appears enlarged Suboptimal evaluation of the spleen IMPRESSION: Increased hepatic echotexture consistent with fatty infiltration. Hepatomegaly
[2020-02-13 12:48] LABS: Potassium 3.4 mmol/L (3.5-5.1); Thyroid Stimulating Hormone 0.283 uIU/mL (0.360-3.740)
[2020-02-13 13:49] VITALS: BMI 27.5
[2020-02-13 15:20] LABS: BUN Blood Urea Nitrogen 9 mg/dL (7-18); Glucose Level 243 mg/dL (74-106); Sodium Level 135 mmol/L (136-145)
[2020-02-13 15:22] LABS: Bicarbonate 4 mmol/L (21-32)
[2020-02-13 15:42] LABS: Arterial Blood Carboxyhemoglob 1.5 % (0-1.5); Blood Gas Oxyhemoglobin 95.7 % (94-97); Blood O2 Saturation 98.4 % (92-98.5)
[2020-02-13] MEDS: POTASSIUM CL 40 MEQ in NA CHLORIDE 0.9% 500 ML IV SCH ×2 (16:00→20:00)
[2020-02-13] MEDS: D5W 1,000 ML with NA BICARB 8.4% 150 MEQ IV SCH ×4 (16:00→23:40)
[2020-02-13] MEDS ORDERED: SODIUM BICARB 50 MEQ/50ML VIAL IV ONE (16:00)
[2020-02-13] MEDS ORDERED: ENOXAPARIN 40 MG/0.4 ML SQ ONE (16:01)
[2020-02-13] MEDS ORDERED: NICOTINE 21 MG/PAT TD ONE (16:02)
[2020-02-13] MEDS ORDERED: SODIUM BICARB 50 MEQ/50ML VIAL ONE (16:03)
[2020-02-13] MEDS: AMLODIPINE 5 MG TAB PO SCH (17:35)
[2020-02-13 19:28] LABS: Potassium 3.5 mmol/L (3.5-5.1)
[2020-02-13] MEDS ORDERED: NA CHLORIDE 0.9% 100 ML IV ONE (21:33)
[2020-02-13] MEDS ORDERED: INSULIN -REGULAR HUMAN 50 UNIT/0.5 ML ML ONE (21:33)
[2020-02-14 02:01] LABS: BUN Blood Urea Nitrogen 9 mg/dL (7-18); Glucose Level 255 mg/dL (74-106); Sodium Level 135 mmol/L (136-145)
[2020-02-14 02:09] LABS: Bicarbonate 8 mmol/L (21-32); Potassium 2.8 mmol/L (3.5-5.1)
[2020-02-14 04:13] LABS: BUN Blood Urea Nitrogen 9 mg/dL (7-18); Glucose Level 277 mg/dL (74-106); Magnesium 2.2 mg/dL (1.8-2.4); NT PRO-BNP 70 pg/mL (<125); Sodium Level 136 mmol/L (136-145)
[2020-02-14 04:40] LABS: Bicarbonate 10 mmol/L (21-32); Phosphorus 0.5 mg/dL (2.5-4.9); Potassium 2.7 mmol/L (3.5-5.1)
[2020-02-14] MEDS ORDERED: POTASSIUM PHOS 30 MM in NA CHLORIDE 0.9% 500 ML IV ONE (05:15)
[2020-02-14 05:42] LABS: Absolute Lymphocytes (CBC) 1.5 K/uL (0.7-4.9); Basophils % 0.7 % (0-1.3); Hematocrit 43.2 % (39.6-49.0); Lymphocytes % 13.4 % (15.3-44.8); MPV 9.7 fL (7.6-11.3); RBC Red Blood Cell Count 4.97 M/uL (4.33-5.43)
[2020-02-14] MEDS ORDERED: POTASSIUM CL 40 MEQ in NA CHLORIDE 0.9% 500 ML IV SCH ×3 (06:00→23:45)
[2020-02-14] MEDS: D5W 1,000 ML with NA BICARB 8.4% 50 MEQ IV SCH ×8 (06:00→21:45)
[2020-02-14 06:05] LABS: HDL Cholesterol 44 mg/dL (40-60); Magnesium 2.2 mg/dL (1.8-2.4)
[2020-02-14 06:24] LABS: Phosphorus 0.3 mg/dL (2.5-4.9)
[2020-02-14 06:34] LABS: LDL, Direct 215 mg/dL (100-129)
[2020-02-14] MEDS: NICOTINE 21 MG/PAT TD SCH (09:00)
[2020-02-14] MEDS: ENOXAPARIN 40 MG/0.4 ML SQ SCH (09:00)
[2020-02-14] MEDS: PANTOPRAZOLE 40 MG INJ IVP SCH (09:00)
[2020-02-14] MEDS: THIAMINE 200 MG/2 ML INJ IVP SCH (09:00)
[2020-02-14] MEDS: AMLODIPINE 5 MG TAB PO SCH (09:00)
[2020-02-14] MEDS ORDERED: NICOTINE 21 MG/PAT TD ONE (09:40)
[2020-02-14] MEDS ORDERED: AMLODIPINE 5 MG TAB ONE (09:40)
[2020-02-14] MEDS ORDERED: ENOXAPARIN 40 MG/0.4 ML SQ ONE (09:41)
[2020-02-14] MEDS ORDERED: PANTOPRAZOLE 40 MG INJ ONE (09:41)
[2020-02-14] MEDS ORDERED: THIAMINE 200 MG/2 ML INJ ONE (09:43)
[2020-02-14 10:34] LABS: BUN Blood Urea Nitrogen 9 mg/dL (7-18); Bicarbonate 13 mmol/L (21-32); Glucose Level 307 mg/dL (74-106); Sodium Level 135 mmol/L (136-145)
[2020-02-14 10:38] LABS: Potassium 2.4 mmol/L (3.5-5.1)
[2020-02-14 14:18] LABS: BUN Blood Urea Nitrogen 9 mg/dL (7-18); Glucose Level 259 mg/dL (74-106); Sodium Level 139 mmol/L (136-145)
[2020-02-14 14:26] LABS: Potassium 2.7 mmol/L (3.5-5.1)
[2020-02-14 14:27] LABS: Bicarbonate 13 mmol/L (21-32)
[2020-02-14] MEDS ORDERED: POTASSIUM CL SA 10 MEQ TAB PO ONE ×2 (14:46→15:36)
--- NOTE | 2020-02-14 16:32 | P.PN ---
Subjective Date of Service: 02/14/20 Chief Complaint: DKA Subjective: Improving (Patient still lethargic. Still requiring an IV insulin drip for DKA. Able to tolerate small amounts of water.) Physical Examination - Vital Signs Temperature: 97.1 F Blood Pressure: 138/86 Pulse: 105 Respirations: 23 Pulse Ox (%): 96 - Physical Exam General: Obese, Other (Lethargic) HEENT: Atraumatic, Normocephalic, PERRLA, Mucous membr. moist/pink, EOMI Neck: Supple Respiratory: Clear to auscultation bilaterally, Normal air movement Cardiovascular: No edema, Regular rate/rhythm, Normal S1 S2 Gastrointestinal: Normal bowel sounds, Soft and benign, Non-distended, No tenderness Musculoskeletal: No clubbing, No swelling, No contractures, No erythema, No tenderness, No warmth Neurological: Normal speech, Normal tone, Normal affect Assessment & Plan - Problems (Diagnosis) (1) DKA (diabetic ketoacidoses) Current Visit: Yes Status: Acute (2) New onset type 1 diabetes mellitus, uncontrolled Current Visit: Yes Status: Acute Physician Review Additional Text: Assessment 24-year-old male with no prior medical history admitted with DKA. Still on insulin drip. Is tolerating minimal water intake. DKA New onset diabetes mellitus PLAN Continue ICU status Continue insulin drip along with dextrose half NS Monitor fingerstick every hr, and BMP every 4 hr Continue NPO status Patient has been counseled. I discussed with him the possibility that he may be discharged with insulin. He does not have any insurance. I will consult social media marketing analyst for assistance.
[2020-02-14 18:41] LABS: BUN Blood Urea Nitrogen 9 mg/dL (7-18); Bicarbonate 16 mmol/L (21-32); Glucose Level 193 mg/dL (74-106); Sodium Level 139 mmol/L (136-145)
[2020-02-14 18:43] LABS: Potassium 2.6 mmol/L (3.5-5.1)
[2020-02-14 22:39] LABS: BUN Blood Urea Nitrogen 9 mg/dL (7-18); Bicarbonate 18 mmol/L (21-32); Glucose Level 227 mg/dL (74-106); Sodium Level 140 mmol/L (136-145)
[2020-02-14 22:41] LABS: Potassium 2.6 mmol/L (3.5-5.1)
[2020-02-14] MEDS ORDERED: INSULIN GLARGINE 100 UNITS/ML SQ ONE (23:06)
[2020-02-14] MEDS: D5.45NS W/KCL 20MEQ 20 MEQ/1,000 ML BAG IV SCH (23:33)
[2020-02-14] MEDS ORDERED: KCL 20 MEQ/100 mL IVPB 40 MEQ/200 ML BAG IV ONE (23:40)
[2020-02-15] MEDS ORDERED: D50W 25 GM/50 ML SYRINGE/VIAL IV PRN ×2 (01:21→14:43)
[2020-02-15] MEDS ORDERED: GLUCAGON 1 MG/VIAL IM PRN ×2 (01:21→14:43)
[2020-02-15] MEDS: KCL 20 MEQ/100 mL IVPB 20 MEQ/100 ML BAG IV SCH ×2 (01:45)
[2020-02-15 06:53] LABS: Magnesium 2.4 mg/dL (1.8-2.4); Phosphorus 1.2 mg/dL (2.5-4.9)
[2020-02-15 07:37] LABS: Absolute Lymphocytes (CBC) 1.9 K/uL (0.7-4.9); Basophils % 0.2 % (0-1.3); Hematocrit 38.1 % (39.6-49.0); Lymphocytes % 18.9 % (15.3-44.8); MPV 10.9 fL (7.6-11.3); RBC Red Blood Cell Count 4.45 M/uL (4.33-5.43)
[2020-02-15 08:39] LABS: Potassium 3.3 mmol/L (3.5-5.1); Sodium Level 142 mmol/L (136-145)
[2020-02-15 08:40] LABS: BUN Blood Urea Nitrogen 10 mg/dL (7-18); Glucose Level 344 mg/dL (74-106)
[2020-02-15 08:41] LABS: Bicarbonate 12 mmol/L (21-32)
[2020-02-15] MEDS: D5.45NS W/KCL 20MEQ 20 MEQ/1,000 ML BAG IV SCH (09:37)
[2020-02-15] MEDS: INSULIN -REGULAR HUMAN 50 UNIT/0.5 ML ML SQ SCH ×4 (09:37→20:46)
[2020-02-15] MEDS: NICOTINE 21 MG/PAT TD SCH (09:38)
[2020-02-15] MEDS: ENOXAPARIN 40 MG/0.4 ML SQ SCH (09:38)
[2020-02-15] MEDS: AMLODIPINE 5 MG TAB PO SCH (09:38)
[2020-02-15] MEDS: PANTOPRAZOLE 40 MG INJ IVP SCH (09:39)
[2020-02-15] MEDS: THIAMINE 200 MG/2 ML INJ IVP SCH (09:40)
[2020-02-15 10:16] LABS: Platelet Estimate ADEQ; Urine White Blood Cell Casts OK
[2020-02-15 10:17] LABS: Blood Morphology Comment NOT SEEN (NOT SEEN)
--- NOTE | 2020-02-15 11:07 | EKG ---
Test Date: 2020-02-13 Test Time: 08:07:48 [employer] Tug Mate: LEIGHA MEASUREMENT RESULTS: Intervals: Rate: 128 WI: 142 QRSD: 92 QT: 328 QTc: 478 Novinger: P: 64 WI: 142 QRS: 6 T: 70 INTERPRETIVE STATEMENTS: Sinus tachycardia Possible Left atrial enlargement Borderline ECG Compared to ECG 06/23/2012 13:46:35 Sinus rhythm no longer present Electronically Signed On 02-15-20 11:03:17 CDT by Cesar Daniel
[2020-02-15] MEDS ORDERED: POTASSIUM CL SA 10 MEQ TAB PO ONE ×3 (11:43→20:11)
[2020-02-15] MEDS ORDERED: POTASSIUM 25 MEQ EFFERV TAB PO ONE ×2 (12:00→17:00)
[2020-02-15 13:45] LABS: Arterial Blood Carboxyhemoglob 1.5 % (0-1.5); Blood Gas Oxyhemoglobin 95.5 % (94-97); Blood O2 Saturation 98.1 % (92-98.5)
[2020-02-15 14:23] LABS: BUN Blood Urea Nitrogen 11 mg/dL (7-18); Bicarbonate 15 mmol/L (21-32); Glucose Level 372 mg/dL (74-106); Sodium Level 138 mmol/L (136-145)
[2020-02-15 14:26] LABS: Potassium 2.6 mmol/L (3.5-5.1)
[2020-02-15] MEDS ORDERED: POTASSIUM CL 40 MEQ in NA CHLORIDE 0.9% 500 ML IV SCH (15:00)
--- NOTE | 2020-02-15 15:31 | P.PN ---
Subjective Date of Service: 02/15/20 Chief Complaint: DKA Subjective: Improving (Patient off the insulin drip and transitioned to subcutaneous insulin. Resumed on diet. Was sent for a gap reopening after dextrose infusion was left running for several following discontinuation of insulin drip) Physical Examination - Vital Signs Temperature: 97.8 F Blood Pressure: 127/60 Pulse: 99 Respirations: 20 Pulse Ox (%): 100 - Physical Exam General: Alert, In no apparent distress, Cooperative, Obese HEENT: Atraumatic, Normocephalic, EOMI Neck: Supple Respiratory: Clear to auscultation bilaterally, Normal air movement Cardiovascular: No edema, Normal pulses, Regular rate/rhythm, Normal S1 S2 Gastrointestinal: Normal bowel sounds, Soft and benign, Non-distended, No ten derness Musculoskeletal: No clubbing, No swelling, No contractures, No erythema, No tenderness, No warmth Integumentary: No rashes, No breakdown, No significant lesion, No tenderness/swelling, No erythema, No warmth, No cyanosis Neurological: Normal speech, Sensation intact, Normal affect Assessment & Plan - Problems (Diagnosis) (1) DKA (diabetic ketoacidoses) Current Visit: Yes Status: Acute (2) New onset type 1 diabetes mellitus, uncontrolled Current Visit: Yes Status: Acute Physician Review Additional Text: Assessment 24-year-old male with no prior medical history admitted with DKA. Transitioned to subcutaneous insulin and received 1 dose of Lantus 10 units early this morning. DKA New onset diabetes mellitus PLAN Patient resumed on diabetic diet I will switch from Lantus to NPH insulin Continue checking a BMP q.4 hr I am anticipating discharge tomorrow Patient will need to establish care with a PCP Patient has been counseled. I discussed with him the possibility that he may be discharged with insulin. He does not have any insurance. I will consult clinical social work therapist for assistance.
[2020-02-15] MEDS: NPH (HUMAN) 100 UNITS/ML INSULIN SQ SCH (16:31)
[2020-02-16 06:07] LABS: Absolute Lymphocytes (CBC) 2.7 K/uL (0.7-4.9); Basophils % 1.2 % (0-1.3); Lymphocytes % 31.7 % (15.3-44.8); MPV 10.2 fL (7.6-11.3); RBC Red Blood Cell Count 4.48 M/uL (4.33-5.43)
[2020-02-16 06:21] LABS: BUN Blood Urea Nitrogen 8 mg/dL (7-18); Bicarbonate 15 mmol/L (21-32); Glucose Level 247 mg/dL (74-106); Magnesium 2.3 mg/dL (1.8-2.4); Phosphorus 1.9 mg/dL (2.5-4.9); Sodium Level 139 mmol/L (136-145)
[2020-02-16] MEDS ORDERED: KCL 20 MEQ/100 mL IVPB 20 MEQ/100 ML BAG IV SCH (07:00)
[2020-02-16 07:01] LABS: Blood Morphology Comment NOTED (NOT SEEN); Hypochromasia 1+; Platelet Estimate ADEQ; Urine White Blood Cell Casts OK
[2020-02-16] MEDS ORDERED: POTASSIUM PHOS IN 0.9 % NACL 15 MMOL/250 ML BAG IV ONE (08:00)
[2020-02-16] MEDS: NPH (HUMAN) 100 UNITS/ML INSULIN SQ SCH ×3 (08:00→16:41)
[2020-02-16] MEDS: NICOTINE 21 MG/PAT TD SCH (08:02)
[2020-02-16] MEDS: THIAMINE 200 MG/2 ML INJ IVP SCH (08:02)
[2020-02-16] MEDS: PANTOPRAZOLE 40 MG INJ IVP SCH (08:02)
[2020-02-16] MEDS: SODIUM CHLORIDE 0.9% 10ML INJ IV PRN (08:03)
[2020-02-16] MEDS: ENOXAPARIN 40 MG/0.4 ML SQ SCH (08:03)
[2020-02-16] MEDS ORDERED: POTASSIUM CL SA 10 MEQ TAB PO ONE (08:17)
[2020-02-16] MEDS ORDERED: POTASSIUM PHOS 30 MM in NA CHLORIDE 0.9% 500 ML IV ONE (09:00)
[2020-02-16] MEDS: INSULIN -REGULAR HUMAN 50 UNIT/0.5 ML ML SQ SCH ×4 (09:02→20:14)
[2020-02-16] MEDS: AMLODIPINE 5 MG TAB PO SCH (10:03)
--- NOTE | 2020-02-16 12:31 | P.PN ---
Subjective Date of Service: 02/16/20 Chief Complaint: DKA Subjective: Improving (Patient continues to improve. He is staying the hospital until his insulin regimen can be optimized) Physical Examination - Vital Signs Temperature: 97.5 F Blood Pressure: 136/84 Pulse: 88 Respirations: 17 Pulse Ox (%): 100 - Physical Exam General: Alert, In no apparent distress, Cooperative, Obese HEENT: Atraumatic, Normocephalic, EOMI Neck: Supple Respiratory: Clear to auscultation bilaterally, Normal air movement Cardiovascular: No edema, Normal pulses, Regular rate/rhythm, Normal S1 S2 Gastrointestinal: Normal bowel sounds, Soft and benign, Non-distended, No tenderness Neurological: Normal speech, Sensation intact, Normal affect Assessment & Plan - Problems (Diagnosis) (1) DKA (diabetic ketoacidoses) Current Visit: Yes Status: Acute (2) New onset type 1 diabetes mellitus, uncontrolled Current Visit: Yes Status: Acute Physician Review Additional Text: Assessment 24-year-old male with no prior medical history admitted with DKA. Transitioned to subcutaneous insulin and received 1 dose of Lantus 10 units early this morning. DKA New onset diabetes mellitus PLAN Increased NPH insulin Continue diabetic diet I am anticipating discharge tomorrow Patient will need to establish care with a PCP Patient has been counseled. I discussed with him the possibility that he may be discharged with insulin. He does not have any insurance. I will consult social science instructor for assistance.
[2020-02-16] MEDS ORDERED: NPH (HUMAN) 100 UNITS/ML INSULIN SQ SCH (17:00)
[2020-02-16] MEDS ORDERED: NA CHLORIDE 0.9% 500 ML ONE (20:13)
[2020-02-16] MEDS: KCL 20 MEQ/100 mL IVPB 20 MEQ/100 ML BAG IV SCH ×2 (20:16→22:28)
[2020-02-17] MEDS: KCL 20 MEQ/100 mL IVPB 20 MEQ/100 ML BAG IV SCH ×3 (00:33→11:12)
[2020-02-17 04:22] LABS: HBsAG Nonreactive (Nonreactive)
[2020-02-17 06:04] LABS: BUN Blood Urea Nitrogen 8 mg/dL (7-18); Bicarbonate 21 mmol/L (21-32); Glucose Level 215 mg/dL (74-106); Phosphorus 2.5 mg/dL (2.5-4.9); Sodium Level 138 mmol/L (136-145)
[2020-02-17 06:06] LABS: Potassium 2.9 mmol/L (3.5-5.1)
[2020-02-17] MEDS ORDERED: POTASSIUM CL SA 10 MEQ TAB PO ONE (07:53)
[2020-02-17] MEDS ORDERED: NPH (HUMAN) 100 UNITS/ML INSULIN SQ SCH (08:00)
[2020-02-17] MEDS ORDERED: POTASSIUM CL 40 MEQ in NA CHLORIDE 0.9% 500 ML IV SCH (08:00)
[2020-02-17] MEDS: PANTOPRAZOLE 40 MG INJ IVP SCH (08:13)
[2020-02-17] MEDS: THIAMINE 200 MG/2 ML INJ IVP SCH (08:14)
[2020-02-17] MEDS: AMLODIPINE 5 MG TAB PO SCH (08:14)
[2020-02-17] MEDS: ENOXAPARIN 40 MG/0.4 ML SQ SCH (08:14)
[2020-02-17] MEDS: NICOTINE 21 MG/PAT TD SCH (08:14)
[2020-02-17] MEDS: INSULIN -REGULAR HUMAN 50 UNIT/0.5 ML ML SQ SCH ×2 (08:15→11:53)
[2020-02-17] MEDS: SODIUM CHLORIDE 0.9% 10ML INJ IV PRN (08:16)
[2020-02-17 09:21] VITALS: O2SAT 100
--- NOTE | 2020-02-17 11:41 | P.DS ---
Admission Date: 02/13/20 Discharge Date: 02/17/20 Disposition: ROUTINE DISCHARGE Discharge Condition: GOOD Reason for Admission: DKA - Problems (1) DKA (diabetic ketoacidoses) Current Visit: Yes Status: Acute (2) New onset type 1 diabetes mellitus, uncontrolled Current Visit: Yes Status: Acute Hospital Course: Patient is a 24 year old male who was admitted with new onset diabetes mellitus complicated by DKA. He was placed on DKA protocol as per standard of care. He will be discharged on twice daily NPH. Patient will also be on atorvastatin for HIGH LDL, TG. Vital Signs/Physical Exam: Temp Pulse Resp BP Pulse Ox 97.9 F 90 17 142/82 H 100 02/17/20 08:00 02/17/20 08:14 02/17/20 08:00 02/17/20 08:14 02/17/20 08:00 General: In no apparent distress, Cooperative, Obese HEENT: Atraumatic, Normocephalic, EOMI Neck: Supple Respiratory: Clear to auscultation bilaterally, Normal air movement Cardiovascular: No edema, Normal pulses, Regular rate/rhythm, Normal S1 S2 Musculoskeletal: No clubbing, No swelling, No contractures, No erythema, No tenderness, No warmth Neurological: Normal speech, Normal affect Laboratory Data at Discharge: WBC 8.5 K/uL (4.3-10.9) D 02/16/20 05:50 Hgb 13.8 g/dL (13.6-17.9) 02/16/20 05:50 Hct 38.0 % (39.6-49.0) L 02/16/20 05:50 Plt Count 219 K/uL (152-406) 02/16/20 05:50 PT 11.4 SECONDS (9.5-12.5) 02/13/20 07:59 INR 0.97 02/13/20 07:59 APTT 34.5 SECONDS (24.3-36.9) 02/13/20 07:59 Sodium 138 mmol/L (136-145) 02/17/20 05:00 Potassium 3.1 mmol/L (3.5-5.1) L 02/17/20 08:30 BUN 8 mg/dL (7-18) 02/17/20 05:00 Creatinine 0.70 mg/dL (0.55-1.3) 02/17/20 05:00 Glucose 215 mg/dL (74-106) H 02/17/20 05:00 Phosphorus 2.5 mg/dL (2.5-4.9) 02/17/20 05:00 Magnesium 2.3 mg/dL (1.8-2.4) 02/16/20 05:50 Total Bilirubin 0.6 mg/dL (0.2-1.0) 02/13/20 07:59 AST 44 U/L (15-37) H 02/13/20 07:59 ALT 147 U/L (12-78) H 02/13/20 07:59 Alkaline Phosphatase 193 U/L (45-117) H 02/13/20 07:59 Triglycerides 565 mg/dL (<150) H 02/14/20 05:25 Cholesterol 328 mg/dL (<200) H 02/14/20 05:25 LDL Cholesterol Direct 215 mg/dL (100-129) H 02/14/20 05:25 HDL Cholesterol 44 mg/dL (40-60) 02/14/20 05:25 Cholesterol/HDL Ratio 7.45 02/14/20 05:25 Lipase 200 U/L (73-393) 02/13/20 07:59 Home Medications: Amlodipine [Norvasc*] 5 mg PO DAILY #30 tab 02/17/20 Atorvastatin Calcium [Lipitor*] 40 mg PO BEDTIME #30 tab 02/17/20 Insulin NPH Human [Novolin N (Humulin N)*] 30 units SQ BIDWM #10 ml 02/17/20 New Medications: Atorvastatin Calcium [Lipitor*] 40 mg PO BEDTIME #30 tab Amlodipine [Norvasc*] 5 mg PO DAILY #30 tab Insulin NPH Human [Novolin N (Humulin N)*] 30 units SQ BIDWM #10 ml
[2020-02-17 14:54] VITALS: BP 146/84; TEMP 97.8
[2020-02-17 16:47] LABS: HIV AG/AB 4TH GEN Non-reactive (Non-reactive)
== END 2020-02-17 13:53 | disposition home or self-care (01) | DRG 639 ==
LOC: ER 07:22 → ERHOLD 09:50 → 2ND 02-15 01:37
PROVIDERS: ADMIT Family Medicine; ATTEND Internal Medicine
DX: E10.10 Type 1 diabetes mellitus with ketoacidosis without coma (principal); F17.200 Nicotine dependence, unspecified, uncomplicated; J45.909 Unspecified asthma, uncomplicated; E66.9 Obesity, unspecified; R06.02 Shortness of breath; R05 Cough; Z20.828 Contact with and (suspected) exposure to other viral communicable diseases; Z68.27 Body mass index [BMI] 27.0-27.9, adult
CPT/HCPCS: 36415; 71045; 76705; 80048; 80061; 80074; 80076; 80307; 81003; 82010; 82550; 82553; 82805; 82947; 83036; 83605; 83690; 83735; 83880; 84100; 84132; 84439; 84443; 84484; 85025; 85610; 85730; 87040; 87086; 87088; 87389; 93005; 96361; 96365; 96366; 96375; 99285; C9113; J0456; J1650; J1815; J2930; J3411; J3480; J7030; J7040; J7050; U0002

== ENCOUNTER 2023-08-28 10:48 | Observation (INO) | payer SELFPAY ==
--- OUTSIDE RECORDS SUMMARY | 2023-08-28 10:51 | XMS REPORT | Continuity of Care Document ---
Author Name Unknown Address [address] [facility] [address] Address [address] [facility] [address] [place] [address] Care Team Providers Care Lapel Padder Name Role Phone Unavailable Unavailable Unavailable Encounters Start Date/Time End Date/Time Encounter Type Admission Type Attending Clinicians [facility] Facility Care Department Encounter ID Source 2023-08-05 14:58:09 2023-08-05 14:58:09 Outpatient S[facility] SFA [id number] Hermann Cardenas 2023-07-17 15:25:37 2023-07-17 15:25:37 Outpatient SFA SFA [id number] Hermann Cardenas 2023-07-10 13:55:12 2023-07-10 13:55:12 Outpatient SFA SFA [id number] Hermann Cardenas 2023-07-04 14:06:47 2023-07-04 14:06:47 Outpatient SFA SFA [id number] Hermann Cardenas 2023-06-13 14:08:18 2023-06-13 14:08:18 Outpatient SFA SFA [id number] Hermann Cardenas 2023-05-22 16:19:18 2023-05-22 16:19:18 Outpatient SFA SFA [id number] Hermann Cardenas 2023-05-13 15:40:15 2023-05-13 15:40:15 Outpatient SFA SFA [id number] Hermann Cardenas 2023-04-22 15:41:44 2023-04-22 15:41:44 Outpatient SFA SFA [id number] Hermann Cardenas 2023-03-20 13:04:54 2023-03-20 13:04:54 Outpatient SFA SFA [id number] Hermann Cardenas 2023-03-10 10:44:12 2023-03-10 10:44:12 Outpatient [facility] [id number] Hermann Cardenas 2023-02-17 15:11:39 2023-02-17 15:11:39 Outpatient [facility] [id number] Hermann Cardenas Results Test Description Test Time Test Comments Results Result Co mments Source COMPREHENSIVE METABOLIC [id number] 04:41:27* Test Item Value Reference Range Interpretation Comme nts GLUCOSE (test code = 2217) 233 MG/DL 70-99 H BUN (test code = 220) 10 MG/DL 6-20 CREATININE (test code = 2214) 0.65 MG/DL 0.80-1.40 L eGFR (2020 CKD-EPI) (test code = 41500) 133 ML/MIN/1.73 >60 CALC BUN/CREAT (test code = 2235) 15 RATIO 6-28 SODIUM (test code = 223) 137 MEQ/L 133-146 POTASSIUM (test code = 2228) 4.3 MEQ/L 3.5-5.4 CHLORIDE (test code = 2215) 99 MEQ/L 95-107 CARBON DIOXIDE (test code = 2206) 21 MEQ/L 19-31 CALCIUM (test code = 2209) 9.6 MG/DL 8.5-10.5 PROTEIN, TOTAL (test code = 2229) 7.5 G/DL 6.1-8.3 ALBUMIN (test code = 2201) 5.0 G/DL 3.5-5.2 CALC GLOBULIN (test code = 2240) 2.5 G/DL 1.9-3.7 CALC A/G RATIO (test code = 2234) 2.0 RATIO 1.0-2.6 BILIRUBIN, TOTAL (test code = 2207) 0.3 MG/DL <=1.2 ALKALINE PHOSPHATASE (test code = 2204) 135 U/L 40-115 H AST (test code = 2218) 36 U/L 9-50 ALT (test code = 2219) 82 U/L 5-50 H UNLESS OTHERWISE INDICATED, ALL TESTING PERFORMED AT [facility] [address] [place] [address], [place] [address] BACK TENDER PAPER MACHINE: NORIS BEDOLLA M.D. CLIA NUMBER [id number] [place]. [id number] LIPID [id number] 06:57:38* Test Item Value Reference Range Interpretation Comme nts CHOLESTEROL (test code = 2210) 337 MG/DL <200 H TRIGLYCERIDES (test code = 2232) 581 MG/DL <150 H HDL CHOLESTEROL (test code = 2220) 38 MG/DL >39 L CALC LDL CHOL (test code = 2237) (NOTE) MG/DL <100 UNABLE TO CALCUL ATE A VALID LDL CHOLESTEROL WHEN THE TRIGLYCERIDEVALUE IS GREATER THAN 400 MG/DL.UNABLE TO CALCULATE A VALID LDL CHOLESTEROL WHEN THE TRIGLYCERIDEVALUE IS GREATER THAN 400 MG/DL. NOTE: CALCULATED LDL IS BASED ON LIONEL-SERRANO METHOD WHICHINCLUDES ADJUSTABLE TRIGLYCERIDE:VLDL CHOLESTEROL RATIO.THIS FACTOR VARIES BY MEASURED TRIGLYCERIDE AND NON-HDLCHOLESTEROL CONCENTRATIONS WITH INCREASED CALCULATED LDL SEENIN HIGHER TRIGLYCERIDE OR LOWER NON-HDL SPECIMENS. FOR MOREINFORMATION, SEE CLIENT ANNOUNCEMENT AT [email or web address] RISK RATIO LDL/HDL (test code = 2238) (NOTE) RATIO <3.55 UNABLE TO ELIZ CULATE COMPREHENSIVE METABOLIC [id number] 06:57:38* Test Item Value Reference Range Interpretation Comme nts GLUCOSE (test code = 2217) 218 MG/DL 70-99 H BUN (test code = 2208) 14 MG/DL 6-20 CREATININE (test code = 2214) 0.70 MG/DL 0.80-1.40 L eGFR (2020 CKD-EPI) (test code = 52459) 130 ML/MIN/1.73 >60 CALC BUN/CREAT (test code = 2235) 20 RATIO 6-28 SODIUM (test code = 223) 139 MEQ/L 133-146 POTASSIUM (test code = 2228) 4.5 MEQ/L 3.5-5.4 CHLORIDE (test code = 2215) 103 MEQ/L 95-107 CARBON DIOXIDE (test code = 2206) 21 MEQ/L 19-31 CALCIUM (test code = 2209) 9.6 MG/DL 8.5-10.5 PROTEIN, TOTAL (test code = 222) 7.5 G/DL 6.1-8.3 ALBUMIN (test code = 220) 5.0 G/DL 3.5-5.2 CALC GLOBULIN (test code = 2240) 2.5 G/DL 1.9-3.7 CALC A/G RATIO (test code = 2234) 2.0 RATIO 1.0-2.6 BILIRUBIN, TOTAL (test code = 2207) 0.3 MG/DL <=1.2 ALKALINE PHOSPHATASE (test code = 2204) 134 U/L 40-115 H AST (test code = 2218) 43 U/L 9-50 ALT (test code = 2219) 107 U/L 5-50 H ALBUMIN/CREATININE RATIO, URINE, [id number] 04:24:14* Test Item Value Reference Range Interpretation Comme nts CREATININE, URINE, CONC. (test code = 2072) 197.9 MG/DL NOT ESTAB ALBUMIN, URINE, RANDOM (test code = 45669) 36.1 MG/DL NOT ESTAB CALC ALBUMIN/CREAT, RND (test code = 00295) 182 MG/G <30 H Note: Albumin/Cr eatinine ratio reference interval reflects ADA and NKF guidelines. UNLESS OTHERWISE INDICATED, ALL TESTING PERFORMED AT [facility] [address] [place] [address] BACK TENDER PAPER MACHINE: NORIS BEDOLLA M.D. CLIA NUMBER [id number] [place]. [id number] HEMOGLOBIN [id number] 02:47:42* Test Item Value Reference Range Interpretation Comme nts HEMOGLOBIN A1c (test code = 84222) 8.5 % 4.2-5.6 H [employer]ATION GUIDELINES FOR HGB A1C: PREDIABETES/INCREASED RISK . . . . . . . 5.7-6.4% DIAGNOSIS OF DIABETES . . . . . . . . . >=6.5% WITH CONFIRMATION OR APPROPRIATE SYMPTOMS NOTE: ASSAY MAY BE AFFECTED BY HEMOGLOBINOPATHIES (SICKLE CELL ANEMIA, S-C DISEASE, OTHERS) OR ARTIFICIALLY LOWERED BY DECREASED RED CELL SURVIVAL (HEMOLYTIC ANEMIAS, BLOOD LOSS, ETC.). CONSIDER ALTERNATE TESTING OR LABORATORY CONSULTATION. CBC W/AUTO DIFF WITH [id number] 02:04:05* Test Item Value Reference Range Interpretation Comme nts WBC (test code = 1001) 6.7 K/UL 3.5-11.0 RBC (test code = 1002) 5.30 M/UL 4.50-6.10 HEMOGLOBIN (test code = 1003) 16.1 G/DL 13.5-17.0 HEMATOCRIT (test code = 1004) 46.4 % 40.0-51.0 MCV (test code = 1005) 87.5 fL 80.0-99.0 MCH (test code = 1006) 30.4 PG 25.0-33.0 MCHC (test code = 1007) 34.7 G/DL 31.0-36.0 RDW (test code = 1038) 13.3 % 11.5-15.0 NEUTROPHILS (test code = 1008) 46.2 % LYMPHOCYTES (test code = 1010) 42.0 % MONOCYTES (test code = 1011) 8.6 % EOSINOPHILS (test code = 1012) 1.8 % BASOPHILS (test code = 1013) 0.7 % IMMATURE GRANULOCYTES (test code = 1036) 0.7 % NUCLEATED RBCS (test code = 1065) 0.0 /100 WBC'S See_Comment [Automated Predecta ge] The system which generated this result transmitted reference range: 0.0. The reference range was not used to interpret this result as normal/abnormal. PLATELET COUNT (test code = 1015) 346 K/UL 130-400 ABSOLUTE NEUTROPHILS (test code = 1066) 3.11 K/UL 1.50-7.50 ABSOLUTE LYMPHOCYTES (test code = 1067) 2.83 K/UL 1.00-4.00 ABSOLUTE MONOCYTES (test code = 1068) 0.58 K/UL 0.20-1.00 ABSOLUTE EOSINOPHILS (test code = 1040) 0.12 K/UL 0.00-0.50 ABSOLUTE BASOPHILS (test code = 1069) 0.05 K/UL 0.00-0.20 ABS IMMATURE GRANULOCYTES (test code = 1020) 0.05 K/UL 0.00-0.10 ABS NUCLEATED RBCS (test code = 00765) 0.00 K/UL 0.00-0.11 TSH, THIRD [id number] 05:00:42* Test Item Value Reference Range Interpretation Comme nts TSH, THIRD GENERATION (test code = 2821) 1.900 UIU/ML 0.400-4.100 UNLESS OTHERWISE INDICATED, ALL TESTING PERFORMED AT [facility] [address] [place] [address] BACK TENDER PAPER MACHINE: NORIS BEDOLLA M.D. CLIA NUMBER [id number] [place]. [id number] LIPID [id number] 05:00:05* Test Item Value Reference Range Interpretation Comme nts CHOLESTEROL (test code = 2210) 275 MG/DL <200 H TRIGLYCERIDES (test code = 2232) 343 MG/DL <150 H HDL CHOLESTEROL (test code = 2220) 43 MG/DL >39 CALC LDL CHOL (test code = 2237) 174 MG/DL <100 H NOTE: CALCULATED LDL IS BASED ON LIONEL-SERRANO METHOD WHICHINCLUDES ADJUSTABLE TRIGLYCERIDE:VLDL CHOLESTEROL RATIO.THIS FACTOR VARIES BY MEASURED TRIGLYCERIDE AND NON-HDLCHOLESTEROL CONCENTRATIONS WITH INCREASED CALCULATED LDL SEENIN HIGHER TRIGLYCERIDE OR LOWER NON-HDL SPECIMENS. FOR MOREINFORMATION, SEE CLIENT ANNOUNCEMENT AT [email or web address] RISK RATIO LDL/HDL (test code = 2238) 4.05 RATIO <3.55 H COMPREHENSIVE METABOLIC [id number] 05:00:05* Test Item Value Reference Range Interpretation Comme nts GLUCOSE (test code = 2217) 138 MG/DL 70-99 H BUN (test code = 2208) 11 MG/DL 6-20 CREATININE (test code = 2214) 0.74 MG/DL 0.80-1.40 L eGFR (2020 CKD-EPI) (test code = 28721) 128 ML/MIN/1.73 >60 CALC BUN/CREAT (test code = 2235) 15 RATIO 6-28 SODIUM (test code = 223) 142 MEQ/L 133-146 POTASSIUM (test code = 2228) 4.4 MEQ/L 3.5-5.4 CHLORIDE (test code = 2215) 106 MEQ/L 95-107 CARBON DIOXIDE (test code = 2206) 22 MEQ/L 19-31 CALCIUM (test code = 2209) 9.7 MG/DL 8.5-10.5 PROTEIN, TOTAL (test code = 2229) 7.3 G/DL 6.1-8.3 ALBUMIN (test code = 2201) 4.9 G/DL 3.5-5.2 CALC GLOBULIN (test code = 2240) 2.4 G/DL 1.9-3.7 CALC A/G RATIO (test code = 2234) 2.0 RATIO 1.0-2.6 BILIRUBIN, TOTAL (test code = 2207) <0.2 MG/DL See_Comment [Automated fl ssage] The system which generated this result transmitted reference range: <=1.2. The reference range was not used to interpret this result as normal/abnormal. ALKALINE PHOSPHATASE (test code = 4) 108 U/L 40-115 AST (test code = 8) 33 U/L 9-50 ALT (test code = 9) 86 U/L 5-50 H CBC W/AUTO DIFF WITH [id number] 02:32:42* Test Item Value Reference Range Interpretation Comme nts WBC (test code = 1001) 7.7 K/UL 3.5-11.0 RBC (test code = 1002) 5.31 M/UL 4.50-6.10 HEMOGLOBIN (test code = 1003) 15.9 G/DL 13.5-17.0 HEMATOCRIT (test code = 1004) 47.3 % 40.0-51.0 MCV (test code = 1005) 89.1 fL 80.0-99.0 MCH (test code = 1006) 29.9 PG 25.0-33.0 MCHC (test code = 1007) 33.6 G/DL 31.0-36.0 RDW (test code = 1038) 13.4 % 11.5-15.0 NEUTROPHILS (test code = 1008) 45.1 % LYMPHOCYTES (test code = 1010) 40.1 % MONOCYTES (test code = 1011) 10.3 % EOSINOPHILS (test code = 1012) 2.3 % BASOPHILS (test code = 1013) 0.9 % IMMATURE GRANULOCYTES (test code = 1036) 1.3 % NUCLEATED RBCS (test code = 1065) 0.0 /100 WBC'S See_Comment [Automated messa ge] The system which generated this result transmitted reference range: 0.0. The reference range was not used to interpret this result as normal/abnormal. PLATELET COUNT (test code = 1015) 314 K/UL 130-400 ABSOLUTE NEUTROPHILS (test code = 1066) 3.46 K/UL 1.50-7.50 ABSOLUTE LYMPHOCYTES (test code = 1067) 3.08 K/UL 1.00-4.00 ABSOLUTE MONOCYTES (test code = 1068) 0.79 K/UL 0.20-1.00 ABSOLUTE EOSINOPHILS (test code = 1040) 0.18 K/UL 0.00-0.50 ABSOLUTE BASOPHILS (test code = 1069) 0.07 K/UL 0.00-0.20 ABS IMMATURE GRANULOCYTES (test code = 1020) 0.10 K/UL 0.00-0.10 ABS NUCLEATED RBCS (test code = 06967) 0.00 K/UL 0.00-0.11
[2023-08-28] MEDS ORDERED: NA CHLORIDE 0.9% 1,000 ML ONE ×3 (11:23→13:40)
[2023-08-28] MEDS ORDERED: LORazepam 2 MG/ML VIAL ONE (11:23)
[2023-08-28 11:30] LABS: Absolute Lymphocytes (CBC) 2.1 K/uL (0.7-4.9); Hematocrit 47.3 % (39.6-49.0); Lymphocytes % 17.8 % (15.3-44.8); MCV 86.9 fL (80-100); MPV 9.1 fL (7.6-11.3); Platelets 320 thou/uL (152-406); RBC Red Blood Cell Count 5.44 M/uL (4.33-5.43)
[2023-08-28 11:40] LABS: Specific Gravity 1.026 (1.005-1.030); Urine Bacteria None Seen /HPF (<20); Urine Bilirubin NEGATIVE (Negative); Urine Blood 2+ (Negative); Urine Clarity Clear (Clear); Urine Color Colorless (Yellow); Urine Glucose 4+ (Over) (Negative); Urine Mucus Slight /HPF (None Seen); Urine Protein 3+ (Negative); Urine Urobilinogen Normal (Normal); Urine pH 5.5 (5.0-7.0)
[2023-08-28 12:47] LABS: Albumin 3.5 g/dL (3.4-5.0); Bilirubin Total 0.4 mg/dL (0.2-1.0); Potassium 4.5 mEq/L (3.5-5.1); Protein, Total 7.9 g/dL (6.4-8.2)
--- NOTE | 2023-08-28 12:57 | EDPHYS ---
Physician Documentation [facility] Name: Diego Howe Age: 28 yrs Sex: Male : 1995 Arrival Date: 08/28/2023 Time: 10:48 Bed 18 Private MD: ED Physician Praveen Carvajal HPI: 08/28 11:06 This 28 yrs old Male presents to ER via Ambulatory with complaints of Blood ec2 Sugar Problem. 11:06 Patient arrives today due to concern for elevated blood sugar. Patient reports history ec2 of diabetes, takes Tresiba, states that he has been having some decreased p.o. intake with associated nausea. Patient reports no diarrhea symptoms, no increasing urination. States that if anything he has decreased urine output. Patient reports some congestion and cough and cold symptoms just over a week ago that have improved. Patient also reports a history of anxiety, states that he feels very anxious as he has a previous diagnosis of DKA 4 years ago and states he is concerned about DKA.. Historical: - Allergies: 11:05 No Known Allergies; ll1 - PMHx: 11:05 Asthma; C-diff; Irritable bowel syndrome; Diabetes mellitus; DKA; ll1 - Immunization history:: Adult Immunizations up to date. - Social history:: Smoking status: Reported history of juuling and/or vaping. Patient/guardian denies using tobacco, Stopped _ months ago 4. ROS: 11:06 Constitutional: as per hpi ec2 Exam: 11:06 Constitutional: GEN: NAD Head: atraumatic Eyes: EOMI Ears: External ears are ec2 normal. CV: Tachycardia LUNGS: no respiratory distress ABD: non-distended, soft, nontender, no guarding, nonrigid SKIN: no evidence of rashes MSK: no evidence of trauma NEURO: moves all extremities equally . Psych: Anxious individual Vital Signs: 11:03 BP 132 / 93; Pulse 126; Resp 18; Temp 98(O); Pulse Ox 96% on R/A; Weight 154.22 kg; ll1 Height 5 ft. 9 in. ; Pain 0/10; 12:01 Pulse 117; Resp 20; Pulse Ox 97% ; me1 12:03 Pulse 111; ec2 13:00 BP 131 / 98; Pulse 114; Resp 20; Pulse Ox 97% on R/A; me1 13:30 BP 142 / 87; Pulse 110; Resp 18; Pulse Ox 98% on R/A; me1 14:00 BP 117 / 94; Pulse 114; Resp 16; Pulse Ox 99% on R/A; me1 14:22 Weight 139.5 kg; me1 14:30 BP 160 / 77; Pulse 110; Resp 17; Pulse Ox 98% on R/A; me1 15:00 BP 127 / 95; Pulse 114; Resp 18; Pulse Ox 99% on R/A; me1 15:30 BP 124 / 70; Pulse 112; Resp 17; Pulse Ox 97% on R/A; me1 16:00 BP 139 / 92; Pulse 111; Resp 16; Pulse Ox 96% on R/A; me1 16:30 BP 134 / 72; Pulse 112; Resp 18; Pulse Ox 98% on R/A; me1 17:00 BP 134 / 74; Pulse 110; Resp 18; Pulse Ox 97% on R/A; me1 11:03 Body Mass Index 50.21 (139.50 kg, 175.26 cm) ll1 11:03 Pain Scale: Adult ll1 MDM: 11:01 Patient medically screened. ec2 11:06 Data reviewed: vital signs. ED course: Patient arrives today due to concern for ec2 elevated blood sugars. Examination remarkable for tachycardic individual was markedly anxious with a benign abdomen. Will obtain lab work, urine studies and give the patient crystalloid as well as Ativan for his significant anxiety.. 12:04 ED course: CBC is reassuring, urine is pertinent for ketonuria and glucosuria. . ec2 12:55 ED course: Patient with mild DKA with an anion gap of 20 and elevated blood sugar, will ec2 give the patient subcu insulin and admit for DKA. Discussed case with hospitalist, pending admission.. 08/28 11:08 Order name: CBC with Diff; Complete Time: 12:04 ec2 08/28 11:08 Order name: CMP; Complete Time: 12:53 ec2 08/28 11:08 Order name: UAM; Complete Time: 12:04 ec2 08/28 16:10 Order name: Glucose, Ancillary Testing EDMS 08/28 17:14 Order name: Glucose, Ancillary Testing EDMS 08/28 18:15 Order name: Glucose, Ancillary Testing EDMS 08/28 19:17 Order name: Glucose, Ancillary Testing EDMS 08/28 19:29 Order name: Basic Metabolic Panel EDMS 08/28 20:23 Order name: Glucose, Ancillary Testing EDMS 08/28 21:14 Order name: Glucose, Ancillary Testing EDMS 08/28 21:58 Order name: Basic Metabolic Panel EDMS 08/28 22:14 Order name: Glucose, Ancillary Testing EDMS 08/28 23:14 Order name: Glucose, Ancillary Testing EDMS 08/29 00:14 Order name: Glucose, Ancillary Testing EDMS 08/29 01:22 Order name: Glucose, Ancillary Testing EDMS 08/29 02:12 Order name: Glucose, Ancillary Testing EDMS 08/29 02:26 Order name: Basic Metabolic Panel EDMS 08/29 03:20 Order name: Lipid Profile EDMS 08/29 03:32 Order name: LDL, Direct EDMS 08/29 03:38 Order name: Glucose, Ancillary Testing EDMS 08/29 04:18 Order name: Glucose, Ancillary Testing EDMS 08/29 05:20 Order name: Glucose, Ancillary Testing EDMS 08/29 06:00 Order name: Glucose, Ancillary Testing EDMS 08/29 06:18 Order name: Basic Metabolic Panel EDMS 08/29 06:20 Order name: Phosphorus EDMS 08/29 06:20 Order name: Lipid Profile EDMS 08/29 06:20 Order name: Magnesium EDMS 08/29 06:31 Order name: LDL, Direct EDMS 08/29 07:05 Order name: Hemoglobin A1c EDMS 08/29 07:07 Order name: Glucose, Ancillary Testing EDMS 08/29 07:23 Order name: CBC with Automated Diff EDMS 08/29 08:18 Order name: Glucose, Ancillary Testing EDMS 08/29 11:25 Order name: Glucose, Ancillary Testing EDMS 08/29 11:28 Order name: Basic Metabolic Panel EDMS 08/29 15:26 Order name: Basic Metabolic Panel EDMS 08/28 12:05 Order name: CXR XRAY; Complete Time: 13:12 ec2 08/28 11:13 Order name: IV Start; Complete Time: 11:20 ll1 08/28 11:30 Order name: Labs - recollect needed: please recollect green top; Complete Time: 11:43 em1 Administered Medications: 11:32 Drug: NS 0.9% IV 1000 ml IV at 1 bolus Per protocol; 1000 mL bolus Route: IV; Rate: 1 iw bolus; Site: right antecubital; 12:45 Follow up: IV Status: Completed infusion; IV Intake: 1000ml me1 11:32 Drug: Ativan IVP 1 mg IVP once Route: IVP; Site: right antecubital; iw 12:45 Follow up: Response: No adverse reaction; Anxiety decreased me1 12:45 Drug: NS 0.9% IV 1000 ml IV at 1 bolus Per protocol; 1000 mL bolus Route: IV; Rate: 1 me1 bolus; Site: right antecubital; 14:19 Follow up: IV Status: Completed infusion me1 13:36 CANCELLED (Other Intervention Used): insulin units Sub-Q once la1 13:41 Drug: NS 0.9% IV 1000 ml IV at 150 ml/hr continuous Route: IV; Rate: 150 ml/hr; Site: me1 right antecubital; 15:56 Drug: Insulin Drip - (Insulin Regular Human IVP 100 units, NS 0.9% IV 100 ml) IV at me1 calculated rate continuous; Standard concentration 1unit/ml; Dose for DKA is 0.1 units/kg/hr {Co-Signature: iw (Debra Calero RN).} Route: IV; Rate: calculated rate; Site: right antecubital; 16:21 Follow up: Rate change 10 units/hr me1 17:04 Follow up: Rate change 11 units/hr; for blood sugar of 254 me1 Point of Care Testing: Blood Glucose: 13:39 Blood Glucose: 309 mg/dL; me1 13:39 Called to Kaz Cordova NP me1 Ranges: Critical Glucose Levels:Adult <50 mg/dl or >400 mg/dl <40 mg/dl or >180 mg/dl Disposition Summary: 08/28/23 12:57 Hospitalization Ordered Notes: Hospitalization Status: Inpatient Admission ec2 Provider: Serjio Rodrigues ec2 Condition: Stable ec2 Problem: an acute exacerbation ec2 Symptoms: have improved ec2 Bed/Room Type: Standard ec2 Location: [facility] ER HOLD(08/28/23 18:51) cg Room Assignment: ERHOLD-(08/28/23 18:51) cg Diagnosis - Diabetes mellitus due to underlying condition with ketoacidosis ec2 Forms: - Medication Reconciliation Form ec2 - SBAR form ec2 - Leadership Thank You Letter ec2 Critical care time excluding procedures: 15:46 Critical care time: Bedside Care: 30 minutes, Consultation: 5 minutes. Total time: 35 ec2 minutes Signatures: Dispatcher [employer] Debra Powers RN RN iw Griffin Deng em1 Kaz Christie, BICYCLE TAXI DRIVER-C BICYCLE TAXI DRIVER-Cla1 Perla Carballo RN RN Lacey Thomas RN RN 1 Aleah Champion RN RN md1 Praveen Carvajal MD MD ec2 Debra Calero RN Corrections: (The following items were deleted from the chart) 11:07 11:06 Patient arrives today due to concern for elevated blood sugar. Patient reports ec2 history of diabetes, takes Tresiba, states that he has been having some decreased p.o. intake with associated nausea. Patient reports no diarrhea symptoms, no increasing urination. States that if anything he has decreased urine output. Patient reports some congestion and cough and cold symptoms.. ec2 11:07 11:06 Constitutional: GEN: NAD Head: atraumatic Eyes: EOMI Ears: External ears are ec2 normal. CV: Tachycardia LUNGS: no respiratory distress ABD: non-distended, soft, nontender, no guarding, nonrigid SKIN: no evidence of rashes MSK: no evidence of trauma NEURO: moves all extremities equally ec2 12:06 11:06 Patient arrives today due to concern for elevated blood sugar. Patient reports ec2 history of diabetes, takes Tresiba, states that he has been having some decreased p.o. intake with associated nausea. Patient reports no diarrhea symptoms, no increasing urination. States that if anything he has decreased urine output. Patient reports some congestion and cough and cold symptoms. Patient also reports a history of anxiety, states that he feels very anxious as he has a previous diagnosis of DKA 4 years ago and states he is concerned about DKA.. ec2 13:36 12:55 Insulin Aspart Sub-Q 50 units Sub-Q once ordered. ec2 la1 18:51 12:57 Telemetry/MedSurg (Inpatient) ec2 cg 18:51 12:57 ec2 cg
--- NOTE | 2023-08-28 12:57 | ER ---
Nurse's Notes [facility] Name: Diego Howe Age: 28 yrs Sex: Male : 1995 Arrival Date: 08/28/2023 Time: 10:48 Bed 18 Private MD: Diagnosis: Diabetes mellitus due to underlying condition with ketoacidosis Presentation: 08/28 11:03 Chief complaint: Patient states: Friday he had "sinus infection". Not eating well, ll1 shaky, anxiety, urinating frequently. Worried about DKA. No BM for 3 days, but finally had normal BM at 4 AM. + nausea. Coronavirus screen: Client denies travel out of the [place] in the last 14 days. At this time, the client does not indicate any symptoms associated with coronavirus-19. Ebola Screen: Patient denies travel to an Ebola-affected area in the 21 days before illness onset. Initial Sepsis Screen: Does the patient meet any 2 criteria? No. Patient's initial sepsis screen is negative. Does the patient have a suspected source of infection? No. Patient's initial sepsis screen is negative. Risk Assessment: Do you want to hurt yourself or someone else? Patient reports no desire to harm self or others. Onset of symptoms was August 23, 2023. 11:03 Method Of Arrival: Ambulatory ll1 11:03 Acuity: MALENA 3 ll1 Historical: - Allergies: 11:05 No Known Allergies; ll1 - PMHx: 11:05 Asthma; C-diff; Irritable bowel syndrome; Diabetes mellitus; DKA; ll1 - Immunization history:: Adult Immunizations up to date. - Social history:: Smoking status: Reported history of juuling and/or vaping. Patient/guardian denies using tobacco, Stopped _ months ago 4. Screenin:25 [facility] ED Fall Risk Assessment (Adult) Score/Fall Risk Level 0 - 2 = Low Risk ll1 Oriented to surroundings, Maintained a safe environment, Educated pt \\T\\ family on fall prevention, incl call for assistance when getting out of bed, Hourly rounding (assess needs \\T\\ fall precautionary measures) done. Abuse screen: Denies threats or abuse. Nutritional screening: No deficits noted. Tuberculosis screening: No symptoms or risk factors identified. Assessment: 11:06 General: Appears uncomfortable, Behavior is cooperative, appropriate for age, anxious. ll1 Pain: Denies pain. Neuro: Reports weakness shaky. GI: Reports cramping, intolerance of food, nausea, vomiting. : Reports urinary frequency. EENT: Reports nasal congestion. 12:01 Reassessment: No changes from previously documented assessment. Patient and/or family me1 updated on plan of care and expected duration. Pain level reassessed. Patient is alert, oriented x 3, equal unlabored respirations, skin warm/dry/pink. Vital Signs: 11:03 BP 132 / 93; Pulse 126; Resp 18; Temp 98(O); Pulse Ox 96% on R/A; Weight 154.22 kg; ll1 Height 5 ft. 9 in. ; Pain 0/10; 12:01 Pulse 117; Resp 20; Pulse Ox 97% ; me1 12:03 Pulse 111; ec2 13:00 BP 131 / 98; Pulse 114; Resp 20; Pulse Ox 97% on R/A; me1 13:30 BP 142 / 87; Pulse 110; Resp 18; Pulse Ox 98% on R/A; me1 14:00 BP 117 / 94; Pulse 114; Resp 16; Pulse Ox 99% on R/A; me1 14:22 Weight 139.5 kg; me1 14:30 BP 160 / 77; Pulse 110; Resp 17; Pulse Ox 98% on R/A; me1 15:00 BP 127 / 95; Pulse 114; Resp 18; Pulse Ox 99% on R/A; me1 15:30 BP 124 / 70; Pulse 112; Resp 17; Pulse Ox 97% on R/A; me1 16:00 BP 139 / 92; Pulse 111; Resp 16; Pulse Ox 96% on R/A; me1 16:30 BP 134 / 72; Pulse 112; Resp 18; Pulse Ox 98% on R/A; me1 17:00 BP 134 / 74; Pulse 110; Resp 18; Pulse Ox 97% on R/A; me1 11:03 Body Mass Index 50.21 (139.50 kg, 175.26 cm) ll1 11:03 Pain Scale: Adult ll1 ED Course: 10:50 Patient arrived in ED. rg4 10:51 Praveen Carvajal MD is Attending Physician. ec2 11:05 Triage completed. ll1 11:06 Arm band placed on Patient placed in an exam room, on a stretcher. ll1 11:13 Lacey Thomas, KEEGAN is Primary Nurse. ll1 11:17 Inserted saline lock: 22 gauge in right antecubital area, using aseptic technique. ll1 Blood collected. 11:25 CBC with Diff Sent. ll1 11:25 CMP Sent. ll1 11:32 UAM Sent. iw 11:32 CMP Sent. iw 11:32 CBC with Diff Sent. iw 12:56 Serjio Rodrigues MD is Hospitalizing Provider. ec2 12:59 CXR XRAY In Process Unspecified. EDMS 16:31 Inserted saline lock: 20 gauge in left upper arm, using aseptic technique. em1 0216 00:46 Patient has correct armband on for positive identification. Provided Education on: dka. rv Client placed on continuous cardiac and pulse oximetry monitoring. NIBP monitoring applied. traffic monitor specialist on. 00:46 No provider procedures requiring assistance completed. Patient admitted, IV remains in rv place. Administered Medications: 08/28 11:32 Drug: NS 0.9% IV 1000 ml IV at 1 bolus Per protocol; 1000 mL bolus Route: IV; Rate: 1 iw bolus; Site: right antecubital; 12:45 Follow up: IV Status: Completed infusion; IV Intake: 1000ml me1 11:32 Drug: Ativan IVP 1 mg IVP once Route: IVP; Site: right antecubital; iw 12:45 Follow up: Response: No adverse reaction; Anxiety decreased me1 12:45 Drug: NS 0.9% IV 1000 ml IV at 1 bolus Per protocol; 1000 mL bolus Route: IV; Rate: 1 me1 bolus; Site: right antecubital; 14:19 Follow up: IV Status: Completed infusion me1 13:36 CANCELLED (Other Intervention Used): insulin [id number] units Sub-Q once la1 13:41 Drug: NS 0.9% IV 1000 ml IV at 150 ml/hr continuous Route: IV; Rate: 150 ml/hr; Site: oh1 right antecubital; 15:56 Drug: Insulin Drip - (Insulin Regular Human IVP 100 units, NS 0.9% IV 100 ml) IV at me1 calculated rate continuous; Standard concentration 1unit/ml; Dose for DKA is 0.1 units/kg/hr {Co-Signature: iw (Abdias, Debra RN).} Route: IV; Rate: calculated rate; Site: right antecubital; 16:21 Follow up: Rate change 10 units/hr me1 17:04 Follow up: Rate change 11 units/hr; for blood sugar of 254 me1 Medication: 11:25 VIS not applicable for this client. 1 Point of Care Testing: Blood Glucose: 13:39 Blood Glucose: 309 mg/dL; me1 13:39 Called to Kaz Cordova NP oh1 Ranges: Intake: 12:45 IV: 1000ml; Total: 1000ml. me1 Outcome: 12:57 Decision to Hospitalize by Provider. ec2 08/29 00:46 Admitted to ER Hold. Please see [facility] for further documentation. rv Condition: stable Instructed on the need for admit, 16:11 Patient left the ED. me1 Signatures: Dispatcher [employer] Debra Powers, RN RN iw Griffin Deng em1 Eugenie Carballo rg4 Candido Sultana RN RN rv Lewis, Lynsay, RN RN [facility] Aleah Champion RN RN [facility] Praveen Carvajal MD MD 2 Kaz Christie [employer]-[facility] Debra Calero RN
--- NOTE | 2023-08-28 13:08 | RAD REPORT ---
EXAM DESCRIPTION: RAD - Chest Single View - 08/28/2023 12:57 pm CLINICAL HISTORY: COUGH Chest pain. COMPARISON: Chest Single View dated 02/13/2020; CHEST PA AND LAT 2 VIEW dated 09/30/2012; CHEST PA AND LAT 2 VIEW dated 07/21/2012; CHEST PA AND LAT 2 VIEW dated 06/23/2012 FINDINGS: Portable technique limits examination quality. The lungs are grossly clear. The heart is normal in size. No displaced fractures. IMPRESSION: No acute intrathoracic process suspected.
[2023-08-28] MEDS ORDERED: INSULIN REGULAR (HUMAN) 100 UNIT/ML ONE (14:38)
[2023-08-28] MEDS ORDERED: NA CHLORIDE 0.9% 100 ML ONE (14:39)
--- NOTE | 2023-08-28 15:14 | P.HP ---
Certification for Inpatient Patient admitted to: Observation With expected LOS: <2 Midnights Patient will require the following post-hospital care: None Practitioner: I am a practitioner with admitting privileges, knowledge of patient current condition, hospital course, and medical plan of care. Services: Services provided to patient in accordance with Admission requirements found in Title 42 Section 412.3 of the Code of Federal Regulations Patient History Date of Service: 08/28/23 Reason for admission: DKA History of Present Illness: 28-year-old male with history of diabetes mellitusinsulin-dependent, hypertension, hyperlipidemia presents emergency department with chief complaint of weakness, nausea, concern for possible DKA. He reports on 08/23/2023 and 08/24/2023 he had URI symptoms and he has been nauseous since then with poor oral intake. He was evaluated in the emergency department his labs are significant for mild leukocytosis reports a cough 12 hemoglobin 16.6 hematocrit 47.3 sodium 131 bicarb 9 anion gap 16 glucose 295 urine with 4+ ketones. Patient given 2 L IV fluid bolus in ED, started on insulin drip will need to be admitted to the ICU for DKA. Allergies No Known Allergies Allergy (Unverified 06/23/12 13:46) Home Medications: Amlodipine [Norvasc*] 5 mg PO DAILY #30 tab 02/17/20 Atorvastatin Calcium [Lipitor*] 40 mg PO BEDTIME #30 tab 02/17/20 Insulin NPH Human [Novolin N (Humulin N)*] 30 units SQ BIDWM #10 ml 02/17/20 - Past Medical/Surgical History Diabetic: Yes -: Asthma -: New onset DM -: Hypertension -: Hyperlipidemia -: none Psychosocial/ Personal History: Single. Patient states he lives at home. - Social History Alcohol use: No CD- Drugs: No Caffeine use: No Place of Residence: Home Review of Systems 10-point ROS is otherwise unremarkable Gastrointestinal: Nausea Physical Examination - Physical Exam General: Alert, In no apparent distress, Oriented x3 HEENT: Atraumatic, PERRLA, EOMI Neck: Supple, 2+ carotid pulse no bruit, No LAD Respiratory: Clear to auscultation bilaterally, Normal air movement Cardiovascular: Regular rate/rhythm, Normal S1 S2 Gastrointestinal: Normal bowel sounds, No tenderness Musculoskeletal: No tenderness Integumentary: No rashes Neurological: Normal speech, Normal strength at 5/5 x4 extr, Normal tone - Studies Laboratory Data (last 24 hrs) 08/28/23 08/28/23 12:13 11:15 WBC 12.00 H Hgb 16.6 Hct 47.3 Plt Count 320 Sodium 131 L Potassium 4.5 BUN 9 Creatinine 1.02 Glucose 295 H Total Bilirubin 0.4 AST 10 L ALT 53 Alkaline Phosphatase 141 H Assessment and Plan - Plan Assessment: Diabetes mellitus type 1 with ketoacidosis Hypertension Hyperlipidemia Plan: Diabetes mellitus type 1 with ketoacidosis Received 2 L IV fluid bolus in ED-continue IV fluids Insulin drip ordered, continue hourly glucose monitoring chemistry 4 hours until anion gap closed sugar less than 200 A1c ordered Hypertension Hyperlipidemia Continue home medications DVT PPX: Lovenox Code status: Full Discharge Plan: Home Plan to discharge in: 24 Hours - Advance Directives Does patient have a Living Will: No Does patient have a Durable POA for Healthcare: No - Code Status/Comfort Care Code Status Assessed: Yes (Full code) Critical Care: No Time Spent Managing Pts Care (In Minutes): 70
[2023-08-28] MEDS: INSULIN -REGULAR HUMAN 100 UNIT in NA CHLORIDE 0.9% 100 ML IV SCH (15:56)
[2023-08-28] MEDS ORDERED: NACHLORIDE 0.45% 1,000 ML IV SCH (17:43)
[2023-08-28] MEDS ORDERED: ONDANSETRON 4 MG/2 ML VIAL IV PRN (17:43)
[2023-08-28] MEDS: D5 0.45 NS 1,000 ML IV SCH (18:06)
[2023-08-28] MEDS ORDERED: D5 0.45 NS 1,000 ML IV ONE (18:10)
[2023-08-28 19:28] LABS: Potassium 3.8 mEq/L (3.5-5.1)
[2023-08-28] MEDS: ENOXAPARIN 40 MG/0.4 ML SQ SCH (21:00)
[2023-08-28 21:39] VITALS: BMI 45.3
[2023-08-28 21:58] LABS: Potassium 3.9 mEq/L (3.5-5.1)
[2023-08-28] MEDS ORDERED: ENOXAPARIN 40 MG/0.4 ML SQ ONE (22:16)
[2023-08-29] MEDS ORDERED: D5 0.45 NS 1,000 ML IV ONE (00:41)
[2023-08-29 02:25] LABS: BUN Blood Urea Nitrogen 6 mg/dL (7-18); Bicarbonate 19 mEq/L (21-32); Glomerular Filtration Rate 115 ml/min (=/>90); Glucose Level 210 mg/dL (74-106); Potassium 3.7 mEq/L (3.5-5.1); Sodium Level 133 mEq/L (136-145)
[2023-08-29 03:17] LABS: HDL Cholesterol 41 mg/dL (40-60)
[2023-08-29] MEDS ORDERED: INSULIN REGULAR (HUMAN) 100 UNIT/ML ONE ×4 (03:29→15:50)
[2023-08-29] MEDS ORDERED: NA CHLORIDE 0.9% 100 ML ONE (03:30)
[2023-08-29 03:31] LABS: LDL, Direct 114 mg/dL (100-129)
[2023-08-29 06:17] LABS: Potassium 3.3 mEq/L (3.5-5.1)
[2023-08-29 06:19] LABS: HDL Cholesterol 40 mg/dL (40-60); Magnesium 1.9 mg/dL (1.6-2.4); Phosphorus 1.8 mg/dL (2.5-4.9)
[2023-08-29] MEDS ORDERED: GLUCAGON 1 MG/VIAL IM PRN (06:20)
[2023-08-29] MEDS ORDERED: D50W 25 GM/50 ML SYRINGE IV PRN (06:20)
[2023-08-29] MEDS ORDERED: D10W 125 ML IV PRN (06:25)
[2023-08-29 06:30] LABS: LDL, Direct 133 mg/dL (100-129)
[2023-08-29] MEDS: INSULIN GLARGINE 100 UNIT/ML SQ ONE (06:30)
[2023-08-29] MEDS ORDERED: INSULIN GLARGINE 100 UNIT/ML SQ ONE (06:33)
[2023-08-29 07:17] LABS: Absolute Lymphocytes (CBC) 2.3 K/uL (0.7-4.9); Lymphocytes % 30.8 % (15.3-44.8); MCV 85.8 fL (80-100); Platelets 293 thou/uL (152-406); RBC Red Blood Cell Count 4.89 M/uL (4.33-5.43)
[2023-08-29] MEDS ORDERED: POTASSIUM 25 MEQ EFFERV TAB ONE (07:33)
[2023-08-29] MEDS: INSULIN REGULAR (HUMAN) 100 UNIT/ML SQ SCH ×2 (08:30→15:55)
--- NOTE | 2023-08-29 10:28 | P.DS ---
Admission Date: 08/28/23 Discharge Date: 08/29/23 Disposition: ROUTINE DISCHARGE Discharge Condition: GOOD Reason for Admission: DKA Brief History of Present Illness: 28-year-old male with history of diabetes mellitusinsulin-dependent, hypertension, hyperlipidemia presents emergency department with chief complaint of weakness, nausea, concern for possible DKA. He reports on 08/23/2023 and 08/24/2023 he had URI symptoms and he has been nauseous since then with poor oral intake. He was evaluated in the emergency department his labs are significant for mild leukocytosis reports a cough 12 hemoglobin 16.6 hematocrit 47.3 sodium 131 bicarb 9 anion gap 16 glucose 295 urine with 4+ ketones. Patient given 2 L IV fluid bolus in ED, started on insulin drip will need to be admitted to the ICU for DKA. Hospital Course: Assessment: Diabetes mellitus type 1 with ketoacidosis Hypertension Hyperlipidemia hypertriglyceridemia Patient was admitted to the hospital for diabetic ketoacidosis, he reports he been feeling unwell over the weekend and did not take his insulin. He was started on a insulin drip and IV fluids overnight and had resolution of diabetic ketoacidosis. He has tolerated his diet this morning and is stable for discharge. A1c was checked and was 10.1 Also was triglycerides were elevated at 520, cholesterol 268, LDL cholesterol direct 133. Patient on statin already likely atorvastatin 40 mg per med review. Recommend close follow-up with PCP for further adjustment of insulin-currently he is taking Tresiba 20 units daily or 22 units if his sugars greater than 135 He reports having adequate supply of insulin at home. Will also send prescription for fenofibrate given hypertriglyceridemia Vital Signs/Physical Exam: Temp Pulse Resp BP Pulse Ox 98.1 F 96 H 19 128/72 97 08/29/23 07:00 08/29/23 07:00 08/29/23 07:00 08/29/23 07:00 08/29/23 07:00 General: Alert, In no apparent distress, Oriented x3 HEENT: Atraumatic, PERRLA Neck: Supple, JVD not distended Respiratory: Clear to auscultation bilaterally, Normal air movement Cardiovascular: Regular rate/rhythm, Normal S1 S2 Gastrointestinal: Normal bowel sounds, No tenderness Musculoskeletal: No tenderness Integumentary: No rashes Neurological: Normal speech, Normal tone, Normal affect Laboratory Data at Discharge: WBC 7.60 thou/uL (4.3-10.9) 08/29/23 05:50 Hgb 14.6 g/dL (13.6-17.9) D 08/29/23 05:50 Hct 42.0 % (39.6-49.0) 08/29/23 05:50 Plt Count 293 thou/uL (152-406) 08/29/23 05:50 Sodium 132 mEq/L (136-145) L 08/29/23 05:50 Potassium 3.3 mEq/L (3.5-5.1) L 08/29/23 05:50 BUN 6 mg/dL (7-18) L 08/29/23 05:50 Creatinine 0.95 mg/dL (0.70-1.30) 08/29/23 05:50 Glucose 210 mg/dL (74-106) H 08/29/23 05:50 Phosphorus 1.8 mg/dL (2.5-4.9) L 08/29/23 05:50 Magnesium 1.9 mg/dL (1.6-2.4) 08/29/23 05:50 Total Bilirubin 0.4 mg/dL (0.2-1.0) 08/28/23 12:13 AST 10 U/L (15-37) L 08/28/23 12:13 ALT 53 U/L (16-61) 08/28/23 12:13 Alkaline Phosphatase 141 U/L (45-117) H 08/28/23 12:13 Triglycerides 522 mg/dL (<150) H 08/29/23 05:50 Cholesterol 268 mg/dL (<200) H 08/29/23 05:50 LDL Cholesterol Direct 133 mg/dL (100-129) H 08/29/23 05:50 HDL Cholesterol 40 mg/dL (40-60) 08/29/23 05:50 Cholesterol/HDL Ratio 6.70 08/29/23 05:50 Home Medications: Atorvastatin Calcium [Lipitor*] 80 mg PO BEDTIME 08/29/23 Fenofibrate 50 mg PO DAILY #30 cap 08/29/23 Insulin Degludec [Tresiba] 20 unit SQ DAILY 08/29/23 Sertraline [Zoloft*] 50 mg PO DAILY 08/29/23 hydrOXYzine HCL [Atarax*] 25 mg PO DAILY 08/29/23 New Medications: Fenofibrate 50 mg PO DAILY #30 cap Physician Discharge Instructions: Patient was admitted to the hospital for diabetic ketoacidosis, he reports he been feeling unwell over the weekend and did not take his insulin. He was started on a insulin drip and IV fluids overnight and had resolution of diabetic ketoacidosis. He has tolerated his diet this morning and is stable for discharge. A1c was checked and was 10.1 Also was triglycerides were elevated at 520, cholesterol 268, LDL cholesterol direct 133. Patient is on atorvastatin, fenofibrate at home recommend further titration with PCP Recommend close follow-up with PCP for further adjustment of insulin-currently he is taking Tresiba 20 units daily or 22 units if his sugars greater than 135 He reports having adequate supply of insulin at home. Also discussed with patient that his home glucometer was reading significant lower than hospital glucometer Recommend he obtains a new glucometer to be sure he is having accurate readings, he reported his home glucometer was around 4 years old. Discussed low-carb diet, control of glucose at home as well as increased fluid/water intake the next few days Please follow-up with primary care doctor in the next 1 week Diet: ADA Activity: Ad crystal Followup: NONE,NONE [UNKNOWN] - Time spent managing pt's care (in minutes): 30
[2023-08-29 11:28] LABS: Potassium 3.8 mEq/L (3.5-5.1)
[2023-08-29] MEDS ORDERED: INSULIN REGULAR (HUMAN) 100 UNIT/ML SQ SCH (11:30)
[2023-08-29] MEDS ORDERED: NA CHLORIDE 0.9% 500 ML IV ONE (12:10)
[2023-08-29] MEDS: NA CHLORIDE 0.9% 1,000 ML IV ONE (12:24)
[2023-08-29 15:25] LABS: Potassium 3.5 mEq/L (3.5-5.1)
[2023-08-29 16:39] VITALS: BP 134/74; TEMP 98; O2SAT 97
== END 2023-08-29 16:09 | disposition home or self-care (01) ==
LOC: ER 10:48 → ERHOLD 13:45
PROVIDERS: ADMIT Hospitalist; ATTEND Hospitalist
DX: E10.10 Type 1 diabetes mellitus with ketoacidosis without coma (principal); I10 Essential (primary) hypertension; E78.5 Hyperlipidemia, unspecified; D72.829 Elevated white blood cell count, unspecified; R05.9 Cough, unspecified; E78.1 Pure hyperglyceridemia; F17.290 Nicotine dependence, other tobacco product, uncomplicated
CPT/HCPCS: 36415; 71045; 80048; 80053; 80061; 81001; 82947; 83036; 83735; 84100; 85025; 96361; 96374; 96375; 99285; G0378; J1650; J1815; J7030; J7799